=== PATIENT | female | born 1950 | race Caucasian/White ===

== ENCOUNTER → 2017-05-09 | Outpatient (CLI) | payer MEDICARE ==
--- NOTE | 2017-05-10 09:27 | MM ---
Reason for exam: screening (asymptomatic). Last mammogram was performed 1 year ago. History: Patient is postmenopausal. Family history of premenopausal breast cancer in maternal cousin at age 40, breast cancer in mother at age 70, and breast cancer in maternal aunt at age 60. Benign excisional biopsy of the right breast, April 30, 2002. Core biopsy of the left breast. Excisional biopsy of the left breast. Took estrogen for 1 year. Took progesterone for 1 year. Physical Findings: A clinical breast exam by your physician is recommended on an annual basis and results should be correlated with mammographic findings. MG 3D Screening Mammo W/Cad Bilateral CC and MLO view(s) were taken. Prior study comparison: May 08, 2016, bilateral MG 3d screening mammo w/cad. April 18, 2015, bilateral MG screening mammo w CAD. The breast tissue is heterogeneously dense. This may lower the sensitivity of mammography. Finding: There are typically benign round calcifications in both breasts. There is a chronic nodularity bilaterally. There is no dominant lesion. ASSESSMENT: Benign, BI-RAD 2 RECOMMENDATION: Routine screening mammogram of both breasts in 1 year.
== END | disposition home or self-care (01) ==
LOC: RADMAMWWP 07:51
PROVIDERS: ATTEND Family Medicine
DX: Z12.31 Encounter for screening mammogram for malignant neoplasm of breast (principal)
CPT/HCPCS: 77063; G0202

== ENCOUNTER 2018-03-26 12:18 | Inpatient (IN) | payer MEDICARE ==
[2018-03-26] MEDS ORDERED: MORPHINE SULFATE 4 MG/ML SYRINGE IV STA (12:59)
[2018-03-26] MEDS ORDERED: KETOROLAC 30 MG/ML 1 ML VIAL IVP STA (12:59)
[2018-03-26] MEDS ORDERED: SODIUM CHLORIDE 0.9% 1,000 ML IV STA (12:59)
[2018-03-26] MEDS ORDERED: PANTOPRAZOLE 40 MG/10 ML VIAL IVP STA (12:59)
[2018-03-26] MEDS ORDERED: ONDANSETRON 4 MG/2 ML VIAL IVP STA (12:59)
--- NOTE | 2018-03-26 13:01 | ED ---
Abdominal Pain HPI - General Chief Complaint: Abdominal Pain Stated Complaint: Poss Bowel Obstruction Time Seen by Provider: 03/26/18 12:55 Source: patient, RN notes reviewed, old records reviewed Mode of arrival: ambulatory Limitations: no limitations - History of Present Illness Initial Comments: 67-year-old female presents emergency department today chief complaint of severe abdominal pain. Patient reports that she thinks she has another bout section. She had one a few years ago. Patient has had no fevers or chills. She has had a few episodes of vomiting. She did have a small bowel movement earlier today. She denies any urinary symptoms. Denies back pain. - Related Data Home Medications Medication Instructions Recorded Confirmed Ibuprofen [Motrin] 200 mg PO DAILY PRN 01/02/15 03/26/18 Omeprazole [PriLOSEC] 20 mg PO AC-BRKFST 01/02/15 03/26/18 Allergies Allergy/AdvReac Type Severity Reaction Status Date / Time No Known Allergies Allergy Verified 03/26/18 12:45 Review of Systems ROS Statement: Those systems with pertinent positive or pertinent negative responses have been documented in the HPI. ROS Other: All systems not noted in ROS Statement are negative. Past Medical History Past Medical History: GERD/Reflux, Osteoarthritis (OA), Skin Disorder Additional Past Medical History / Comment(s): psoriasis, diverticulosis, bowel obstuction History of Any Multi-Drug Resistant Organisms: None Reported Past Surgical History: Bowel Resection, Cholecystectomy, Orthopedic Surgery Additional Past Surgical History / Comment(s): MEDICAL HX: BOWEL OBSTRUCTION Past Anesthesia/Blood Transfusion Reactions: Previous Problems w/ Anesthesia, Postoperative Nausea & Vomiting (PONV) Past Psychological History: No Psychological Hx Reported Smoking Status: Never smoker Past Alcohol Use History: Daily Past Drug Use History: None Reported - Past Family History Mother Family Medical History: Cancer Additional Family Medical History / Comment(s): breast cancer General Exam - General Exam Comments Initial Comments: 67-year-old female. Alert and oriented. No acute distress. Limitations: no limitations General appearance: alert, in no apparent distress Head exam: Present: atraumatic, normocephalic, normal inspection Eye exam: Present: normal appearance, PERRL, EOMI. Absent: scleral icterus, conjunctival injection, periorbital swelling ENT exam: Present: normal exam, mucous membranes moist Neck exam: Present: normal inspection. Absent: tenderness, meningismus, lymphadenopathy Respiratory exam: Present: normal lung sounds bilaterally. Absent: respiratory distress, wheezes, rales, rhonchi, stridor Cardiovascular Exam: Present: regular rate, normal rhythm, normal heart sounds. Absent: systolic murmur, diastolic murmur, rubs, gallop, clicks GI/Abdominal exam: Present: soft, tenderness ( severe Diffuse abdominal tenderness.), guarding, normal bowel sounds. Absent: distended, rebound, rigid Extremities exam: Present: normal inspection, full ROM, normal capillary refill. Absent: tenderness, pedal edema, joint swelling, calf tenderness Back exam: Present: normal inspection Neurological exam: Present: alert, oriented X3, CN II-XII intact Psychiatric exam: Present: normal affect, normal mood Skin exam: Present: warm, dry, intact, normal color. Absent: rash Course Vital Signs 03/26/18 03/26/18 12:28 15:16 Temperature 97.7 F Pulse Rate 80 83 Respiratory 18 18 Rate Blood Pressure 131/87 123/58 O2 Sat by Pulse 97 98 Oximetry Medical Decision Making - Medical Decision Making Patient 67-year-old female with multiple abdominal surgeries including cholecystectomy, bowel resection, C-sections. Patient states that her power section was done by Dr. Akhtar few years ago. Patient has a history of bowel obstructions concerned for another today. She had one small bowel movement today multiple episodes of vomiting. Patient has diffuse tenderness on abdominal exam. IV was established Patient is given pain medication and CT of the pelvis completed. Patient's labwork was reviewed and unremarkable. CT abdomen and pelvis shows evidence of a distal and mid small bowel obstruction. NG tube was placed. Patient will be admitted at this time to Dr. Benavidez with consult to Dr. Whiting the on-call surgeon. Patient has seen Dr. Moreno in the past however he is out of town at this time. - Lab Data Result diagrams: 03/26/18 12:51 03/26/18 12:51 Lab Results 03/26/18 03/26/18 03/26/18 Range/Units 12:51 12:51 12:51 WBC 10.4 (3.8-10.6) k/uL RBC 4.71 (3.80-5.40) m/uL Hgb 14.4 (11.4-16.0) gm/dL Hct 45.0 (34.0-46.0) % MCV 95.4 (80.0-100.0) fL MCH 30.6 (25.0-35.0) pg MCHC 32.0 (31.0-37.0) g/dL RDW 13.3 (11.5-15.5) % Plt Count 241 (150-450) k/uL Neutrophils % 75 % Lymphocytes % 16 % Monocytes % 6 % Eosinophils % 1 % Basophils % 0 % Neutrophils # 7.9 H (1.3-7.7) k/uL Lymphocytes # 1.7 (1.0-4.8) k/uL Monocytes # 0.6 (0-1.0) k/uL Eosinophils # 0.1 (0-0.7) k/uL Basophils # 0.0 (0-0.2) k/uL PT 9.5 (9.0-12.0) sec INR 1.0 (<1.2) APTT 21.9 L (22.0-30.0) sec Sodium 138 (137-145) mmol/L Potassium 4.4 (3.5-5.1) mmol/L Chloride 102 (98-107) mmol/L Carbon Dioxide 25 (22-30) mmol/L Anion Gap 11 mmol/L BUN 15 (7-17) mg/dL Creatinine 0.68 (0.52-1.04) mg/dL Est GFR (CKD-EPI)AfAm >90 (>60 ml/min/1.73 sqM) Est GFR (CKD-EPI)NonAf 90 (>60 ml/min/1.73 sqM) Glucose 125 H (74-99) mg/dL Calcium 9.8 (8.4-10.2) mg/dL Total Bilirubin 0.5 (0.2-1.3) mg/dL AST 63 H (14-36) U/L ALT 98 H (9-52) U/L Alkaline Phosphatase 154 H (38-126) U/L Troponin I (0.000-0.034) ng/mL Total Protein 7.5 (6.3-8.2) g/dL Albumin 4.6 (3.5-5.0) g/dL Amylase 80 (30-110) U/L Lipase 67 (23-300) U/L 07/18/18 Range/Units 12:51 WBC (3.8-10.6) k/uL RBC (3.80-5.40) m/uL Hgb (11.4-16.0) gm/dL Hct (34.0-46.0) % MCV (80.0-100.0) fL MCH (25.0-35.0) pg MCHC (31.0-37.0) g/dL RDW (11.5-15.5) % Plt Count (150-450) k/uL Neutrophils % % Lymphocytes % % Monocytes % % Eosinophils % % Basophils % % Neutrophils # (1.3-7.7) k/uL Lymphocytes # (1.0-4.8) k/uL Monocytes # (0-1.0) k/uL Eosinophils # (0-0.7) k/uL Basophils # (0-0.2) k/uL PT (9.0-12.0) sec INR (<1.2) APTT (22.0-30.0) sec Sodium (137-145) mmol/L Potassium (3.5-5.1) mmol/L Chloride (98-107) mmol/L Carbon Dioxide (22-30) mmol/L Anion Gap mmol/L BUN (7-17) mg/dL Creatinine (0.52-1.04) mg/dL Est GFR (CKD-EPI)AfAm (>60 ml/min/1.73 sqM) Est GFR (CKD-EPI)NonAf (>60 ml/min/1.73 sqM) Glucose (74-99) mg/dL Calcium (8.4-10.2) mg/dL Total Bilirubin (0.2-1.3) mg/dL AST (14-36) U/L ALT (9-52) U/L Alkaline Phosphatase (38-126) U/L Troponin I <0.012 (0.000-0.034) ng/mL Total Protein (6.3-8.2) g/dL Albumin (3.5-5.0) g/dL Amylase (30-110) U/L Lipase (23-300) U/L 03/26/18 14:21 EKG shows normal sinus rhythm unable to scratch here for LVH. Cannot rule out anterior infarct age undetermined. Abnormal EKG. Ventricular rate of 79 bpm period. We'll 09/[birth year]/1965 milliseconds. QRS ration 80 ms. QT QTc is 400/458 ms. No evidence of ST elevation or T-wave inversion. No evidence of atrial or ventricular arrythmias. - Radiology Data Radiology results: report reviewed Suspect partial the mid distal small bowel instruction in the pelvis. There is prominence of small bowel loops at 2.7 cm small bowel feces sign with decompressed distal ileum. Small to moderate amount of free fluid within the pelvic cul-de-sac. This is a nonspecific but abnormal finding in a postmenopausal female. Consider further workup. Disposition Clinical Impression: Small bowel obstruction Disposition: ADMITTED IP TO THIS HOSP Condition: Good Is patient prescribed a controlled substance at d/c from ED?: No When asked, does pt state using other controlled substances?: No If prescribed controlled substance>3 days was MAPS reviewed?: No If opioid is for acute pain is fill amount 7 days or less?: No If Rx opioid, was Start Talking consent form obtained?: No Referrals: Jaspreet Ellis DO [Primary Care Provider] - 1-2 days Time of Disposition: 15:55
[2018-03-26 13:42] LABS: Basophils % (A) 0 %; Eosinophils # (A) 0.1 k/uL (0-0.7); Eosinophils % (A) 1 %; HGB 14.4 gm/dL (11.4-16.0); Lymphocytes # (A) 1.7 k/uL (1.0-4.8); Lymphocytes % (A) 16 %; MCH 30.6 pg (25.0-35.0); MCV 95.4 fL (80.0-100.0); Mean Platelet Volume 9.9; Monocytes # (A) 0.6 k/uL (0-1.0); Monocytes % (A) 6 %; Neutrophils # (A) 7.9 k/uL (1.3-7.7); Neutrophils % (A) 75 %; Platelet Count 241 k/uL (150-450); RBC 4.71 m/uL (3.80-5.40); RDW 13.3 % (11.5-15.5); WBC 10.4 k/uL (3.8-10.6)
[2018-03-26 13:50] LABS: ALT 98 U/L (9-52); AST 63 U/L (14-36); Albumin 4.6 g/dL (3.5-5.0); Alkaline Phosphatase 154 U/L (38-126); Amylase 80 U/L (30-110); Anion Gap 11 mmol/L; Blood Urea Nitrogen 15 mg/dL (7-17); Calcium 9.8 mg/dL (8.4-10.2); Carbon Dioxide 25 mmol/L (22-30); Chloride 102 mmol/L (98-107); Glucose 125 mg/dL (74-99); Lipase 67 U/L (23-300); Potassium 4.4 mmol/L (3.5-5.1); Sodium 138 mmol/L (137-145); Total Bilirubin 0.5 mg/dL (0.2-1.3); Total Protein 7.5 g/dL (6.3-8.2)
[2018-03-26 13:56] LABS: Partial Thromboplastin Time 21.9 sec (22.0-30.0); Prothrombin Time 9.5 sec (9.0-12.0)
--- NOTE | 2018-03-26 14:59 | CT ---
EXAMINATION TYPE: CT abdomen pelvis w con DATE OF EXAM: 03/26/2018 HISTORY: Generalized pain with vomiting and diarrhea CT DLP: 786.4mGycm Automated Exposure Control for Dose Reduction was Utilized. CONTRAST: CT scan of the abdomen and pelvis is performed without oral but with IV Contrast, patient injected wi th 100 mL of Isovue 300. COMPARISON: CT abdomen and pelvis January 02, 2015 FINDINGS: LUNG BASES: There is persistent left basilar scarring and/or atelectasis. LIVER/GB: Liver remains diffusely low dense relative to spleen suggesting fatty infiltration. Cholecy stectomy clips are redemonstrated PANCREAS: No significant abnormality is seen. SPLEEN: A few splenules are seen anterior to the spleen are redemonstrated. ADRENALS: No significant abnormality is seen. KIDNEYS: There are 2 upper pole left renal calculi and current study increased in size from prior exa m axial images 31 and 32 respectively measuring up to 5 mm long axis. There may be additional 1 to 2 mm calculus upper pole level right kidney coronal image 58. There is symmetric cortical medullary upt merlin and excretion from both kidneys without evidence of hydronephrosis seen bilaterally. There is sta ble subcentimeter low dense lesion anteriorly lower pole level right kidney series 8 image 40 too sma ll to further characterize but presumed benign. No intraluminal calculus in the bladder is seen. BOWEL: Evaluation of bowel is slightly suboptimal secondary to lack of enteric contrast. There is no suspicious dilatation of stomach or duodenal sweep. There are some fluid-filled prominent small bowel loops in the upper to mid pelvis near axial image 59. There is small bowel feces sign. Bowel measure s up to 2.7 cm in size. No greater than 3 cm aneurysmal change is seen. There are decompressed distal ileal loops to the right of this. UTERUS/ADNEXA: Small to moderate amount of free fluid in pelvic cul-de-sac is redemonstrated axial im age 66. LYMPH NODES: No greater than 1cm abdominal or pelvic lymph nodes are appreciated. OSSEOUS STRUCTURES: No significant abnormality is seen. OTHER: No significant additional abnormality is seen. IMPRESSION: 1. Suspect partial mid to distal small bowel obstruction in the pelvis as there is prominence of smal l bowel loops up to 2.7 cm and small bowel feces sign within decompressed distal ileum. 2. Small to moderate amount of free fluid in pelvic cul-de-sac redemonstrated, this is nonspecific bu t abnormal finding in postmenopausal female. Consider further workup.
[2018-03-26] MEDS ORDERED: LORazepam 2 MG/ML INJ IV STA (15:13)
[2018-03-26] MEDS ORDERED: KETOROLAC 30 MG/ML 1 ML VIAL IVP PRN (15:57)
[2018-03-26] MEDS ORDERED: NALOXONE 0.4 MG/ML 1 ML VIAL IV PRN (15:57)
[2018-03-26] MEDS: SODIUM CHLORIDE 0.9% 1,000 ML IV SCH (16:30)
--- NOTE | 2018-03-26 17:09 | XR ---
EXAMINATION TYPE: XR chest 1V DATE OF EXAM: 03/26/2018 COMPARISON: 01/03/2015 HISTORY: Nasogastric tube TECHNIQUE: Single frontal view of the chest is obtained. FINDINGS: There is no heart failure nor confluent pneumonic infiltrate. There is nasogastric tube wi th the tip overlying the gastric fundus. Costophrenic angles are clear. IMPRESSION: Nasogastric tube appears in good position. No active cardiopulmonary disease.
--- NOTE | 2018-03-26 17:33 | XR ---
EXAMINATION TYPE: XR abdomen 1V DATE OF EXAM: 03/26/2018 COMPARISON: 01/03/2015 HISTORY: Abdominal pain TECHNIQUE: 2 views FINDINGS: There is no sign of intestinal obstruction or pneumoperitoneum. There is nasogastric tube i n good position in the fundus of the stomach. There is contrast in the renal collecting systems. Ther e are clips from cholecystectomy. There is contrast in the urinary bladder. IMPRESSION: Nonacute abdomen. No evidence of renal obstruction.
--- NOTE | 2018-03-26 17:35 | P.HPIM ---
History of Present Illness 67-year-old pleasant female with his previous history came in with complaints of severe epigastric abdominal burning sensation nausea without any vomiting as patient did not eat anything today her burning sensation is about 8/10 in severity and is in the pain is in the abdominal epigastric area. Patient had a CAT scan of the abdomen which did show some mild ileus around the mid to distal small wall area. Surgery was consulted and patient was admitted to my service patient was started on Protonix and discontinue and Toradol. Patient on morphine at this point of time patient had diarrhea couple days ago and patient small bowel movement today. Patient had history of partial small bowel obstructions which was improved with the conservative measures in the past. Review of Systems REVIEW OF SYSTEMS: CONSTITUTIONAL: No fever, no malaise, no fatigue. HEENT: No recent visual problems or hearing problems. Denied any sore throat. CARDIOVASCULAR: No chest pain, orthopnea, PND, no palpitations, no syncope. PULMONARY: No shortness of breath, no cough, no hemoptysis. GASTROINTESTINAL: As mentioned above NEUROLOGICAL: No headaches, no weakness, no numbness. HEMATOLOGICAL: Denies any bleeding or petechiae. GENITOURINARY: Denies any burning micturition, frequency, or urgency. MUSCULOSKELETAL/RHEUMATOLOGICAL: Denies any joint pain, swelling, or any muscle pain. ENDOCRINE: Denies any polyuria or polydipsia. The rest of the 14-point review of systems is negative. Past Medical History Past Medical History: GERD/Reflux, Osteoarthritis (OA), Skin Disorder Additional Past Medical History / Comment(s): psoriasis, diverticulosis, bowel obstuction History of Any Multi-Drug Resistant Organisms: None Reported Past Surgical History: Bowel Resection, Cholecystectomy, Orthopedic Surgery Additional Past Surgical History / Comment(s): MEDICAL HX: BOWEL OBSTRUCTION Past Anesthesia/Blood Transfusion Reactions: Previous Problems w/ Anesthesia, Postoperative Nausea & Vomiting (PONV) Past Psychological History: No Psychological Hx Reported Smoking Status: Never smoker Past Alcohol Use History: Daily Past Drug Use History: None Reported - Past Family History Mother Family Medical History: Cancer Additional Family Medical History / Comment(s): breast cancer Medications and Allergies Home Medications Medication Instructions Recorded Confirmed Type Ibuprofen [Motrin] 200 mg PO DAILY PRN 01/02/15 03/26/18 History Omeprazole [PriLOSEC] 20 mg PO AC-BRKFST 01/02/15 03/26/18 History Allergies Allergy/AdvReac Type Severity Reaction Status Date / Time No Known Allergies Allergy Verified 03/26/18 12:45 Physical Exam Vitals: Vital Signs Temp Pulse Resp BP Pulse Ox 03/26/18 16:30 86 18 126/74 92 L 03/26/18 15:16 83 18 123/58 98 03/26/18 12:28 97.7 F 80 18 131/87 97 Intake and Output 03/26/18 03/26/18 03/26/18 06:59 14:59 22:59 Other: Weight 72.575 kg PHYSICAL EXAMINATION: GENERAL: The patient is alert and oriented x3, not in any acute distress. Well developed, well nourished. She has an NG tube in place which is presently clamped not connected the suction HEENT: Pupils are round and equally reacting to light. EOMI. No scleral icterus. No conjunctival pallor. Normocephalic, atraumatic. No pharyngeal erythema. No thyromegaly. CARDIOVASCULAR: S1 and S2 present. No murmurs, rubs, or gallops. PULMONARY: Chest is clear to auscultation, no wheezing or crackles. ABDOMEN: Soft, nontender, nondistended, normoactive bowel sounds. No palpable organomegaly. MUSCULOSKELETAL: No joint swelling or deformity. EXTREMITIES: No cyanosis, clubbing, or pedal edema. NEUROLOGICAL: Gross neurological examination did not reveal any focal deficits. SKIN: No rashes. Results CBC & Chem 7: 03/26/18 12:51 03/26/18 12:51 Labs: Abnormal Lab Results - Last 24 Hours (Table) 03/26/18 03/26/18 03/26/18 Range/Units 12:51 12:51 12:51 Neutrophils # 7.9 H (1.3-7.7) k/uL APTT 21.9 L (22.0-30.0) sec Glucose 125 H (74-99) mg/dL AST 63 H (14-36) U/L ALT 98 H (9-52) U/L Alkaline Phosphatase 154 H (38-126) U/L Assessment and Plan Plan: -Epigastric abdominal pain: Mostly secondary to gastritis rather than partial small bowel obstruction patient is on Protonix and change it to IV twice a day will monitor. -Mild partial small bowel obstruction as per the CAT scan patient does have good bowel sounds will continue with NG tube as necessary monitor and surgical consultation. -Mild nonspecific elevation of liver enzymes we'll repeat them tomorrow if they' re still elevated will further workup starting with hepatitis panel on the ultrasound of the liver.
--- NOTE | 2018-03-26 20:19 | P.GSCN ---
History of Present Illness Consult date: 03/26/18 History of present illness: CHIEF COMPLAINT: Abdominal pain HISTORY OF PRESENT ILLNESS: The patient is a 67-year-old female who reports fifth episode of small bowel obstruction. Her history significant for C- section 3 including sigmoid colectomy done by Dr. Akhtar. Her last episode of bowel obstruction was over 4+ years ago. She reports obstipation. She reports abdominal pain along the generalized abdomen. She had a CT of the abdomen and pelvis consistent with localized small bowel obstruction hence her admission. Since placement of her nasogastric tube, she reports no improvement of her symptoms. PAST MEDICAL HISTORY: See list. PAST SURGICAL HISTORY: See list. MEDICATIONS: See list. ALLERGIES: See list. SOCIAL HISTORY: No illicit drug use FAMILY HISTORY: No reports of Crohn's disease or inflammatory bowel disease REVIEW OF ORGAN SYSTEMS: CONSTITUTIONAL: No fevers or chills HEENT: No troubles with vision or hearing. No reports of dysphagia. ENDOCRINE: No reports of thyroid disorders. No diabetes. CARDIOVASCULAR: No heart attack. No chest pain. RESPIRATORY: No shortness of breath or pneumonia. GASTROINTESTINAL: No reports of recent blood in stools. Has changes in bowel function. History of diverticulosis. NEURO: No reports of stroke or seizure disorders. PSYCH: No depression or suicidal ideation HEMATOLOGIC: No easy bruising or bleeding LYMPHATIC: The patient denies any lumps and bumps around the neck. GENITOURINARY: History of kidney stones. MUSCULOSKELETAL: Has back pain, stiffness or joint arthritis. SKIN: Has psoriasis. No skin cancer. PHYSICAL EXAM: VITAL SIGNS: Currently stable. GENERAL: Well-developed male in no acute distress. HEENT: No sclera icterus. Extraocular movements grossly intact. Moist buccal mucosa. Head is atraumatic, normocephalic. Hears conversational speech. No nasal drainage. NECK: Supple without lymphadenopathy. CHEST: Non-labored respirations and equal bilateral excursions. CARDIOVASCULAR: Regular rate with regular rhythm. Palpable 2+ radial pulses. ABDOMEN: Soft. Tender along the bilateral lower abdomen. Distended mildly. No peritonitis. MUSCULOSKELETAL: No clubbing, cyanosis or edema. NEUROLOGIC: No focal or lateralizing signs. Cranial nerves II through XII grossly intact. PSYCH: Appropriate affect. Alert and oriented to person, place and time. SKIN: Well perfused. Good skin turgor. LABS: Reviewed STUDIES: Reviewed. Imaging consistent with localized bowel obstruction within the pelvis. ASSESSMENT: 1. Small bowel obstruction due to peritoneal adhesions. PLAN: 1. Agree with nasogastric tube decompression. 2. Recommend ice chips. 3. May need exploratory laparotomy with lysis of adhesions should symptoms persist beyond 24 hours. 4. IV fluid hydration. Thank you for this kind consultation. Past Medical History Past Medical History: GERD/Reflux, Osteoarthritis (OA), Skin Disorder Additional Past Medical History / Comment(s): psoriasis, diverticulosis, 2015 past bowel obstuction(no sx), diverticular disease(hx bowel resection), uti, kidney stone(sx), cataracts. History of Any Multi-Drug Resistant Organisms: None Reported Past Surgical History: Bowel Resection, Section, Cholecystectomy, Orthopedic Surgery Additional Past Surgical History / Comment(s): x3 c-sections, rt knee replacement, kidney stone removed Past Anesthesia/Blood Transfusion Reactions: Previous Problems w/ Anesthesia, Postoperative Nausea & Vomiting (PONV) Smoking Status: Former smoker - Past Family History Father History Unknown: Yes Sister(s) Family Medical History: Cancer Additional Family Medical History / Comment(s): i sister at age 66 from colorectal cancer and 2ns sister dx w/ stage 3 lung cancer-smoker Mother Family Medical History: Cancer Additional Family Medical History / Comment(s): breast cancer Medications and Allergies Home Medications Medication Instructions Recorded Confirmed Type Ibuprofen [Motrin] 200 mg PO DAILY PRN 01/02/15 03/26/18 History Omeprazole [PriLOSEC] 20 mg PO AC-BRKFST 01/02/15 03/26/18 History Allergies Allergy/AdvReac Type Severity Reaction Status Date / Time No Known Allergies Allergy Verified 03/26/18 12:45 Surgical - Exam Vital Signs Temp Pulse Resp BP Pulse Ox 97.7 F 80 18 131/87 97 03/26/18 12:28 03/26/18 12:28 03/26/18 12:28 03/26/18 12:28 03/26/18 12:28 Results - Labs 03/26/18 12:51 03/26/18 12:51 Abnormal Lab Results - Last 24 Hours (Table) 03/26/18 03/26/18 03/26/18 Range/Units 12:51 12:51 12:51 Neutrophils # 7.9 H (1.3-7.7) k/uL APTT 21.9 L (22.0-30.0) sec Glucose 125 H (74-99) mg/dL AST 63 H (14-36) U/L ALT 98 H (9-52) U/L Alkaline Phosphatase 154 H (38-126) U/L Diabetes panel 03/26/18 Range/Units 12:51 Sodium 138 (137-145) mmol/L Potassium 4.4 (3.5-5.1) mmol/L Chloride 102 (98-107) mmol/L Carbon Dioxide 25 (22-30) mmol/L BUN 15 (7-17) mg/dL Creatinine 0.68 (0.52-1.04) mg/dL Glucose 125 H (74-99) mg/dL Calcium 9.8 (8.4-10.2) mg/dL AST 63 H (14-36) U/L ALT 98 H (9-52) U/L Alkaline Phosphatase 154 H (38-126) U/L Total Protein 7.5 (6.3-8.2) g/dL Albumin 4.6 (3.5-5.0) g/dL Calcium panel 03/26/18 Range/Units 12:51 Calcium 9.8 (8.4-10.2) mg/dL Albumin 4.6 (3.5-5.0) g/dL Pituitary panel 03/26/18 Range/Units 12:51 Sodium 138 (137-145) mmol/L Potassium 4.4 (3.5-5.1) mmol/L Chloride 102 (98-107) mmol/L Carbon Dioxide 25 (22-30) mmol/L BUN 15 (7-17) mg/dL Creatinine 0.68 (0.52-1.04) mg/dL Glucose 125 H (74-99) mg/dL Calcium 9.8 (8.4-10.2) mg/dL Adrenal panel 03/26/18 Range/Units 12:51 Sodium 138 (137-145) mmol/L Potassium 4.4 (3.5-5.1) mmol/L Chloride 102 (98-107) mmol/L Carbon Dioxide 25 (22-30) mmol/L BUN 15 (7-17) mg/dL Creatinine 0.68 (0.52-1.04) mg/dL Glucose 125 H (74-99) mg/dL Calcium 9.8 (8.4-10.2) mg/dL Total Bilirubin 0.5 (0.2-1.3) mg/dL AST 63 H (14-36) U/L ALT 98 H (9-52) U/L Alkaline Phosphatase 154 H (38-126) U/L Total Protein 7.5 (6.3-8.2) g/dL Albumin 4.6 (3.5-5.0) g/dL
[2018-03-26] MEDS: MORPHINE SULFATE 4 MG/ML SYRINGE IV PRN (20:22)
[2018-03-26] MEDS: PANTOPRAZOLE 40 MG/10 ML VIAL IV SCH (20:23)
[2018-03-26 21:00] LABS: Appearance,Urine Clear (Clear); Bacteria,Urine Rare /hpf; Bilirubin,Urine Negative (Negative); Blood,Urine Negative (Negative); Color,Urine Yellow; Glucose,Urine (UA) Negative (Negative); Ketones,Urine 1+ (Negative); Leukocyte Esterase,Urine Small (Negative); Mucus,Urine Occasional /hpf; Nitrite,Urine Negative (Negative); Protein,Urine Trace (Negative); RBC,Urine 1 /hpf (0-5); Squamous Epithelial Cell,Urine 1 /hpf (0-4); Urobilinogen,Urine <2.0 mg/dL (<2.0)
[2018-03-26 21:01] LABS: Specific Gravity,Urine >1.050 (1.001-1.035)
[2018-03-27] MEDS: SODIUM CHLORIDE 0.9% 1,000 ML IV SCH ×3 (00:30→17:51)
[2018-03-27] MEDS: MORPHINE SULFATE 4 MG/ML SYRINGE IV PRN ×4 (01:25→21:20)
[2018-03-27] MEDS: ONDANSETRON 4 MG/2 ML VIAL IVP PRN ×2 (04:34→19:45)
[2018-03-27 07:13] LABS: HCT 38.5 % (34.0-46.0); HGB 12.6 gm/dL (11.4-16.0); MCH 31.9 pg (25.0-35.0); MCHC 32.7 g/dL (31.0-37.0); MCV 97.6 fL (80.0-100.0); Platelet Count 195 k/uL (150-450); RBC 3.95 m/uL (3.80-5.40); RDW 13.7 % (11.5-15.5); WBC 7.7 k/uL (3.8-10.6)
[2018-03-27] MEDS: PANTOPRAZOLE 40 MG/10 ML VIAL IV SCH ×2 (07:24→21:16)
[2018-03-27 07:32] LABS: ALT 71 U/L (9-52); AST 39 U/L (14-36); Albumin 3.4 g/dL (3.5-5.0); Alkaline Phosphatase 106 U/L (38-126); Anion Gap 6 mmol/L; Blood Urea Nitrogen 17 mg/dL (7-17); Calcium 8.3 mg/dL (8.4-10.2); Carbon Dioxide 26 mmol/L (22-30); Chloride 109 mmol/L (98-107); Glucose 92 mg/dL (74-99); Potassium 4.5 mmol/L (3.5-5.1); Sodium 141 mmol/L (137-145); Total Bilirubin 0.3 mg/dL (0.2-1.3); Total Protein 5.8 g/dL (6.3-8.2)
--- NOTE | 2018-03-27 08:42 | XR ---
2 view abdomen HISTORY: Bowel obstruction 2 views the abdomen on 4 images Correlation prior exam abdomen and abdomen pelvis CT 03/26/2018 There is contrast present within the urinary bladder. NG tube shows the side port cephalad to the lev el of the gastroesophageal junction. Surgical clips are present right upper quadrant. There are calci fications over the left kidney as noted on CT. Lung bases are clear. Air-fluid levels are present in the central abdomen without gross bowel distention. No pneumoperitoneum. IMPRESSION: Correlate for possible bowel obstruction. Follow-up suggested.
[2018-03-27] MEDS ORDERED: PANTOPRAZOLE 40 MG/10 ML VIAL IV SCH (09:00)
--- NOTE | 2018-03-27 14:21 | P.PN ---
Subjective 58-year-old admitted with the partial small bowel obstruction patient has significant NG tube drainage patient is receiving IV fluids patient is also being treated for gastritis patient on IV Protonix. We'll try to avoid opiates for pain patient does have bowel sounds and patient does have history of a partial small bowel obstruction in the past. Patient did not move her bowel or pass gas. Constitutional: Denied any fatigue denied any fever. Cardio vascular: denied any chest pain, palpitations Gastrointestinal abdominal pain significant improved but patient remains nauseous in spite of NG tube Pulmonary: Denied any shortness of breath cough Neurologic denied any new focal deficits Objective - Vital Signs Vital signs: Vital Signs Temp 98.1 F 03/27/18 07:00 Pulse 80 03/27/18 07:00 Resp 16 03/27/18 07:00 BP 117/64 03/27/18 07:00 Pulse Ox 92 L 03/27/18 07:00 Intake & Output 03/26/18 03/27/18 03/27/18 18:59 06:59 18:59 Intake Total 1000 Output Total 250 Balance 750 Weight 72.575 kg Intake: Intake, IV Titration 1000 Amount Sodium Chloride 0.9% 1, 1000 000 ml @ 120 mls/hr IV . [facility]H20M [facility] Rx#:[id number] Output: Gastric Drainage 250 Other: Voiding Method Toilet # Voids 1 - Exam PHYSICAL EXAMINATION: GENERAL: The patient is alert and oriented x3, not in any acute distress. Well developed, well nourished. She has an NG tube in place which is presently clamped not connected the suction HEENT: Pupils are round and equally reacting to light. EOMI. No scleral icterus. No conjunctival pallor. Normocephalic, atraumatic. No pharyngeal erythema. No thyromegaly. CARDIOVASCULAR: S1 and S2 present. No murmurs, rubs, or gallops. PULMONARY: Chest is clear to auscultation, no wheezing or crackles. ABDOMEN: Soft, nontender, nondistended, normoactive bowel sounds. No palpable organomegaly. NG tube in place with significant drainage from the NG tube MUSCULOSKELETAL: No joint swelling or deformity. EXTREMITIES: No cyanosis, clubbing, or pedal edema. NEUROLOGICAL: Gross neurological examination did not reveal any focal deficits. SKIN: No rashes. - Labs CBC & Chem 7: 03/27/18 06:34 03/27/18 06:34 Labs: Abnormal Lab Results - Last 24 Hours (Table) 03/26/18 03/26/18 03/27/18 Range/Units 12:51 20:45 06:34 APTT 21.9 L (22.0-30.0) sec Chloride 109 H (98-107) mmol/L Calcium 8.3 L (8.4-10.2) mg/dL AST 39 H (14-36) U/L ALT 71 H (9-52) U/L Total Protein 5.8 L (6.3-8.2) g/dL Albumin 3.4 L (3.5-5.0) g/dL Ur Specific [place] >1.050 H (1.001-1.035) Urine Protein Trace H (Negative) Urine Ketones 1+ H (Negative) Ur Leukocyte Esterase Small H (Negative) Urine Bacteria Rare H (None) /hpf Urine Mucus Occasional H (None) /hpf Assessment and Plan Plan: -Mild partial small bowel obstruction, NG tube, de-compression IV fluids. Appreciate surgery recommendations -Epigastric abdominal pain: Mostly secondary to gastritis improved pain with Protonix -Mild nonspecific elevation of liver enzymes repeat liver enzymes are close to normal no further workup at this time -Asymptomatic bacteriuria will not require any antiemetics at this time
[2018-03-27] MEDS: ACETAMINOPHEN IV (For NPO) 1,000 MG in EMPTY BAG 1 BAG IVPB PRN (15:14)
--- NOTE | 2018-03-27 19:10 | P.PN ---
Subjective Progress Note Date: 03/27/18 Patient reports that she is now passing some flatus. She reports discomfort from the NGT tube. She is tolerating ice chips. Abdominal pain has improved. Objective - Vital Signs Vital signs: Vital Signs Temp 98.2 F 03/27/18 14:50 Pulse 83 03/27/18 14:50 Resp 16 03/27/18 15:35 BP 107/68 03/27/18 14:50 Pulse Ox 90 L 03/27/18 14:50 Intake & Output 03/27/18 03/27/18 03/28/18 06:59 18:59 06:59 Intake Total 1000 Output Total 250 250 Balance 750 -250 Intake: Intake, IV Titration 1000 Amount Sodium Chloride 0.9% 1, 1000 000 ml @ 120 mls/hr IV . Q8H20M [facility] Rx#:[id number] Output: Gastric Drainage 250 250 Other: Voiding Method Toilet # Voids 1 2 - Exam ABDOMEN: No peritonitis. Soft. Non-distended. - Labs CBC & Chem 7: 03/27/18 06:34 03/27/18 06:34 Labs: Abnormal Lab Results - Last 24 Hours (Table) 03/26/18 03/27/18 Range/Units 20:45 06:34 Chloride 109 H (98-107) mmol/L Calcium 8.3 L (8.4-10.2) mg/dL AST 39 H (14-36) U/L ALT 71 H (9-52) U/L Total Protein 5.8 L (6.3-8.2) g/dL Albumin 3.4 L (3.5-5.0) g/dL Ur Specific [place] >1.050 H (1.001-1.035) Urine Protein Trace H (Negative) Urine Ketones 1+ H (Negative) Ur Leukocyte Esterase Small H (Negative) Urine Bacteria Rare H (None) /hpf Urine Mucus Occasional H (None) /hpf - Imaging and Cardiology Abdominal x-ray: report reviewed (NGT needs to be advanced. Bowel obstruction noted.) Assessment and Plan (1) Small bowel obstruction Current Visit: Yes Status: Acute Code(s): K56.69 - OTHER INTESTINAL OBSTRUCTION * DO NOT USE * SNOMED Code(s): 953997694 Plan: 1. Advance NG tube. 2. She is clinically improving and surgery is now deferred. 3. Abdominal Xray in the morning.
[2018-03-27] MEDS ORDERED: BENZOCAINE/MENTHOL LOZENG 1 EACH LOZENGE MUCOUS MEM PRN (19:39)
[2018-03-28] MEDS ORDERED: MORPHINE SULFATE 4 MG/ML SYRINGE ONE (03:45)
[2018-03-28] MEDS ORDERED: BENZOCAINE/MENTHOL LOZENG 1 EACH LOZENGE MUCOUS MEM ONE (03:45)
[2018-03-28] MEDS: SODIUM CHLORIDE 0.9% 1,000 ML IV SCH ×3 (05:51→17:56)
[2018-03-28] MEDS: PANTOPRAZOLE 40 MG/10 ML VIAL IV SCH ×2 (08:33→21:07)
--- NOTE | 2018-03-28 09:08 | XR ---
Abdomen HISTORY: Obstruction 2 views of the abdomen correlated to prior exam 03/27/2018 Prominent loop of small bowel persists in the mid abdomen with air-fluid levels. NG tube is coiled in the left upper quadrant. No evident pneumoperitoneum. Left-sided nephrolithiasis persists. Lung base s show probable atelectasis. IMPRESSION: Findings could be indicative of small bowel obstruction. Follow-up. Correlate.
[2018-03-28] MEDS: ACETAMINOPHEN IV (For NPO) 1,000 MG in EMPTY BAG 1 BAG IVPB PRN (09:25)
[2018-03-28] MEDS: MORPHINE SULFATE 4 MG/ML SYRINGE IV PRN ×3 (12:27→21:39)
--- NOTE | 2018-03-28 16:38 | P.PN ---
Subjective Progress Note Date: 03/28/18 Patient is a pleasant 67-year-old female with her fifth episode of small bowel obstruction. Her last episode took at least 8 days to clear 4 years ago. This is day #3 of her bowel obstruction. She had paced some flatus yesterday however none today. Abdominal pain is moderately improved. Objective - Vital Signs Vital signs: Vital Signs Temp 98.4 F 03/28/18 14:16 Pulse 80 03/28/18 14:16 Resp 16 03/28/18 14:16 BP 121/73 03/28/18 14:16 Pulse Ox 90 L 03/28/18 14:16 Intake & Output 03/27/18 03/28/18 03/28/18 18:59 06:59 18:59 Intake Total 1250 Output Total 250 200 Balance -250 1050 Intake: Intake, IV Titration 1250 Amount ACETAMINOPHEN IV (For NPO 100 ) 1,000 mg In Empty Bag 1 bag @ 400 mls/hr IVPB Q6HR PRN Rx#:[id number] Sodium Chloride 0.9% 1, 1150 000 ml @ 120 mls/hr IV . Q8H20M [facility] Rx#:[id number] Output: Gastric Drainage 250 200 Other: Voiding Method Toilet Toilet # Voids 2 1 2 - Exam ABDOMEN: Soft, nontender, nondistended. NG tube output bilious mixed with ice chips. - Labs CBC & Chem 7: 03/27/18 06:34 03/27/18 06:34 - Imaging and Cardiology Abdominal x-ray: report reviewed (Comparative images from yesterday show some improvement of bowel obstruction. Flatus found within the rectum. Stool found within the left colon.), image reviewed Assessment and Plan (1) Small bowel obstruction Current Visit: Yes Status: Acute Code(s): K56.69 - OTHER INTESTINAL OBSTRUCTION * DO NOT USE * SNOMED Code(s): 431999447 Plan: 1. I discussed her options with the patient and she prefers conservative management. Her bowel obstruction last episode took 8 days to clear. She is day #3 today 2. Recommend continued hospitalization. 3. Ice chips only.
[2018-03-28] MEDS: ONDANSETRON 4 MG/2 ML VIAL IVP PRN (18:23)
--- NOTE | 2018-03-28 20:15 | P.PN ---
Subjective Progress Note Date: 03/28/18 Progress note being dictated for Dr. [place] Interval history:58-year-old admitted with the partial small bowel obstruction patient has significant NG tube drainage patient is receiving IV fluids patient is also being treated for gastritis patient on IV Protonix. We'll try to avoid opiates for pain patient does have bowel sounds and patient does have history of a partial small bowel obstruction in the past. Patient did not move her bowel or pass gas. Constitutional: Denied any fatigue denied any fever. Cardio vascular: denied any chest pain, palpitations Gastrointestinal abdominal pain significant improved but patient remains nauseous in spite of NG tube Pulmonary: Denied any shortness of breath cough Neurologic denied any new focal deficits 03/28/2018 NG tube to low intermittent suction, repositioned with increased outflow. No bowel movement. Reports flatus yesterday but none today. Complains of improving diffuse abdominal discomfort. Follow-up abdominal x-ray reporting small bowel obstruction. Afebrile. Objective - Vital Signs Vital signs: Vital Signs Temp 98.4 F 03/28/18 14:16 Pulse 80 03/28/18 14:16 Resp 16 03/28/18 14:16 BP 121/73 03/28/18 14:16 Pulse Ox 90 L 03/28/18 14:16 Intake & Output 03/28/18 03/28/18 03/29/18 06:59 18:59 06:59 Intake Total 1250 Output Total 200 Balance 1050 Intake: Intake, IV Titration 1250 Amount ACETAMINOPHEN IV (For NPO 100 ) 1,000 mg In Empty Bag 1 bag @ 400 mls/hr IVPB Q6HR PRN Rx#:[id number] Sodium Chloride 0.9% 1, 1150 000 ml @ 120 mls/hr IV . Q8H20M [facility] Rx#:[id number] Output: Gastric Drainage 200 Other: Voiding Method Toilet Toilet # Voids 1 2 - Exam GENERAL: The patient is alert and oriented x3, not in any acute distress. Well developed, well nourished. She has an NG tube in place which is presently clamped not connected the suction HEENT: Pupils are round and equally reacting to light. EOMI. No scleral icterus. No conjunctival pallor. Normocephalic, atraumatic. No pharyngeal erythema. No thyromegaly. CARDIOVASCULAR: S1 and S2 present. No murmurs, rubs, or gallops. PULMONARY: Chest is clear to auscultation, no wheezing or crackles. ABDOMEN: Soft, nontender, nondistended, normoactive bowel sounds. No palpable organomegaly. NG tube in place with significant bilious drainage MUSCULOSKELETAL: No joint swelling or deformity. EXTREMITIES: No cyanosis, clubbing, or pedal edema. NEUROLOGICAL: Gross neurological examination did not reveal any focal deficits. SKIN: No rashes. - Labs CBC & Chem 7: 03/27/18 06:34 03/27/18 06:34 Assessment and Plan Assessment: -Mild partial small bowel obstruction, NG tube, de-compression IV fluids. Appreciate surgery recommendations -Epigastric abdominal pain: Mostly secondary to gastritis improved pain with Protonix -Mild nonspecific elevation of liver enzymes repeat liver enzymes are close to normal no further workup at this time -Asymptomatic bacteriuria will not require any antibiotics at this time -Atelectasis Plan: Continue on current medication regime ,monitoring and symptomatic treatment. Aggressive pulmonary toileting. Incentive spirometer ordered. Conservative management as per discussion between surgery and patient. The impression and plan of care has been dictated as directed. : I performed a history and examination of this patient, discussed the same with the dictator. I agree with the dictator's note ,documented as a scribe. Any additional findings or plans will be noted.
[2018-03-29] MEDS: MORPHINE SULFATE 4 MG/ML SYRINGE IV PRN ×6 (01:51→21:36)
[2018-03-29] MEDS: SODIUM CHLORIDE 0.9% 1,000 ML IV SCH ×3 (07:37→21:36)
[2018-03-29] MEDS: PANTOPRAZOLE 40 MG/10 ML VIAL IV SCH ×2 (07:37→21:35)
--- NOTE | 2018-03-29 10:15 | P.PN ---
Progress Note - Text Progress Note Date: 03/29/18 The patient states she feels better. She's had no significant flatus. On exam her vital signs are stable. Her abdomen soft. Patient continued to have a nasogastric tube decompression. If she does not have any further GI function.. She will have her CAT scan repeated tomorrow.
--- NOTE | 2018-03-29 11:25 | P.PN ---
Subjective 58-year-old admitted with the partial small bowel obstruction patient has significant NG tube drainage patient is receiving IV fluids patient is also being treated for gastritis patient on IV Protonix. We'll try to avoid opiates for pain patient does have bowel sounds and patient does have history of a partial small bowel obstruction in the past. Patient did not move her bowel or pass gas. 03/28/2018 NG tube to low intermittent suction, repositioned with increased outflow. No bowel movement. Reports flatus yesterday but none today. Complains of improving diffuse abdominal discomfort. Follow-up abdominal x-ray reporting small bowel obstruction. Afebrile. 03/29/2018 Patient has 100 mL output from NG tube, continue with IV fluids patient does have sluggish bowel sounds are do not have any basic metabolic profile available from today which will be ordered. Constitutional: Denied any fatigue denied any fever. Cardio vascular: denied any chest pain, palpitations Gastrointestinal abdominal pain significant improved Pulmonary: Denied any shortness of breath cough Neurologic denied any new focal deficits Objective - Vital Signs Vital signs: Vital Signs Temp 99.7 F H 03/29/18 07:00 Pulse 92 03/29/18 08:00 Resp 16 03/29/18 08:00 BP 112/69 03/29/18 07:00 Pulse Ox 90 L 03/29/18 07:00 Intake & Output 03/28/18 03/29/18 03/29/18 18:59 06:59 18:59 Intake Total 2020 Output Total 110 Balance 1910 Intake: Intake, IV Titration 2020 Amount ACETAMINOPHEN IV (For NPO 100 ) 1,000 mg In Empty Bag 1 bag @ 400 mls/hr IVPB Q6HR PRN Rx#:[id number] Sodium Chloride 0.9% 1, 1920 000 ml @ 120 mls/hr IV . Q8H20M [facility] Rx#:[id number] Output: Gastric Drainage 110 Other: Voiding Method Toilet Toilet Toilet # Voids 2 2 - Exam PHYSICAL EXAMINATION: GENERAL: The patient is alert and oriented x3, not in any acute distress. Well developed, well nourished. She has an NG tube in place which is presently clamped not connected the suction HEENT: Pupils are round and equally reacting to light. EOMI. No scleral icterus. No conjunctival pallor. Normocephalic, atraumatic. No pharyngeal erythema. No thyromegaly. CARDIOVASCULAR: S1 and S2 present. No murmurs, rubs, or gallops. PULMONARY: Chest is clear to auscultation, no wheezing or crackles. ABDOMEN: Soft, nontender, nondistended, normoactive bowel sounds. No palpable organomegaly. NG tube in place with significant drainage from the NG tube MUSCULOSKELETAL: No joint swelling or deformity. EXTREMITIES: No cyanosis, clubbing, or pedal edema. NEUROLOGICAL: Gross neurological examination did not reveal any focal deficits. SKIN: No rashes. - Labs CBC & Chem 7: 03/27/18 06:34 03/27/18 06:34 Assessment and Plan Plan: -Mild partial small bowel obstruction, NG tube, de-compression IV fluids. Appreciate surgery recommendations -Epigastric abdominal pain: Mostly secondary to gastritis improved pain with Protonix -Mild nonspecific elevation of liver enzymes repeat liver enzymes are close to normal no further workup at this time -Asymptomatic bacteriuria will not require any antiemetics at this time
[2018-03-29 12:31] LABS: Anion Gap 9 mmol/L; Blood Urea Nitrogen 7 mg/dL (7-17); Calcium 7.9 mg/dL (8.4-10.2); Carbon Dioxide 22 mmol/L (22-30); Chloride 108 mmol/L (98-107); Glucose 79 mg/dL (74-99); Sodium 139 mmol/L (137-145)
[2018-03-29 13:37] VITALS: BMI 29.2
[2018-03-30] MEDS: MORPHINE SULFATE 4 MG/ML SYRINGE IV PRN ×4 (04:27→21:32)
[2018-03-30] MEDS: SODIUM CHLORIDE 0.9% 1,000 ML IV SCH ×4 (05:36→21:40)
[2018-03-30 07:45] LABS: Anion Gap 8 mmol/L; Blood Urea Nitrogen 7 mg/dL (7-17); Calcium 7.9 mg/dL (8.4-10.2); Carbon Dioxide 25 mmol/L (22-30); Chloride 108 mmol/L (98-107); Glucose 79 mg/dL (74-99); Sodium 141 mmol/L (137-145)
[2018-03-30 07:56] VITALS: RESP 16
[2018-03-30] MEDS: PANTOPRAZOLE 40 MG/10 ML VIAL IV SCH ×2 (09:14→21:32)
--- NOTE | 2018-03-30 09:22 | P.PN ---
Progress Note - Text Progress Note Date: 03/30/18 The patient is resting comfortably in her bed. She has had some minimal cramping pain. She's not sure she's had any significant flatus. On exam her vital signs are stable. Her abdomen soft. There is no significant distention. History of Small bowel obstruction. Patient will undergo computed tomography scan of the abdomen today possible ongoing small bowel obstruction.
[2018-03-30] MEDS: IOPAMIDOL-300 CONTRAST 30 ML VIAL (ORAL USE) PO PRN ×2 (09:39→10:37)
--- NOTE | 2018-03-30 11:24 | CT ---
EXAMINATION TYPE: CT abdomen pelvis wo con DATE OF EXAM: 03/30/2018 COMPARISON: Previous study dated 03/26/2018. HISTORY: Small bowel obstruction CT DLP: 572.3 mGycm Automated exposure control for dose reduction was used. FINDINGS: There has been interval development of a moderate right-sided pleural effusion. There is a smaller left-sided pleural effusion. There is atelectasis or early consolidation in the left lingula. The heart is mildly enlarged. Within the abdomen, the gallbladder is been removed. Liver and spleen are unremarkable. Both adrenal glands are normal. There are 2 nonobstructing calculi in the anterior and posterior upper pole calyces of the left kidne y. The largest measures 7 mm. There is no evidence of hydronephrosis. Limited views of the pancreas are unremarkable. The bladder is unremarkable. Uterus is unremarkable. The ovaries are not visualized with certainty. There is been a previous sigmoid resection. There are scattered diverticula throughout the remainder of the left side of the colon. There is no radiographic evidence of diverticulitis. The appendix is n ot visualized. Small bowel loops are of normal caliber and have decreased in prominence from the previous study. I d o not see evidence of a small bowel obstruction at this time. There is no free fluid and no free air identified. There is facet arthropathy in the lower lumbar spine. No bony destructive lesion is seen. IMPRESSION: 1. I DO NOT SEE EVIDENCE OF SMALL BOWEL OBSTRUCTION AT THIS TIME. 2. INTERVAL DEVELOPMENT OF SMALL EFFUSIONS, GREATER ON THE RIGHT THAN THE LEFT. 3. NONOBSTRUCTING LEFT-SIDED NEPHROLITHIASIS. 4. POSTSURGICAL CHANGE. 5. DEGENERATIVE CHANGES WITHIN THE SPINE.
[2018-03-30] MEDS: ONDANSETRON 4 MG/2 ML VIAL IVP PRN (12:42)
--- NOTE | 2018-03-30 15:30 | P.PN ---
Subjective 58-year-old admitted with the partial small bowel obstruction patient has significant NG tube drainage patient is receiving IV fluids patient is also being treated for gastritis patient on IV Protonix. We'll try to avoid opiates for pain patient does have bowel sounds and patient does have history of a partial small bowel obstruction in the past. Patient did not move her bowel or pass gas. 03/28/2018 NG tube to low intermittent suction, repositioned with increased outflow. No bowel movement. Reports flatus yesterday but none today. Complains of improving diffuse abdominal discomfort. Follow-up abdominal x-ray reporting small bowel obstruction. Afebrile. 03/29/2018 Patient has 100 mL output from NG tube, continue with IV fluids patient does have sluggish bowel sounds are do not have any basic metabolic profile available from today which will be ordered.\ 03/30/2018 Patient had a bowel movement, nasogastric tube drainage has come down. IV for will cut down the IV fluids to 75 mL/h Constitutional: Denied any fatigue denied any fever. Cardio vascular: denied any chest pain, palpitations Gastrointestinal abdominal pain significant improved Pulmonary: Denied any shortness of breath cough Neurologic denied any new focal deficits Objective - Vital Signs Vital signs: Vital Signs Temp 97.8 F 03/30/18 07:14 Pulse 89 03/30/18 07:14 Resp 16 03/30/18 07:14 BP 136/75 03/30/18 07:14 Pulse Ox 93 L 03/30/18 07:14 Intake & Output 03/29/18 03/30/18 03/30/18 18:59 06:59 18:59 Intake Total 1200 1200 Output Total 200 Balance 1000 1200 Weight 72.575 kg Intake: Intake, IV Titration 1200 Amount Sodium Chloride 0.9% 1, 1200 000 ml @ 120 mls/hr IV . Q8H20M [facility] Rx#:[id number] Oral 1200 Output: Gastric Drainage 100 Emesis 100 Other: Voiding Method Toilet Toilet # Voids 2 2 1 # Bowel Movements 3 - Exam PHYSICAL EXAMINATION: GENERAL: The patient is alert and oriented x3, not in any acute distress. Well developed, well nourished. She has an NG tube in place which is presently clamped not connected the suction HEENT: Pupils are round and equally reacting to light. EOMI. No scleral icterus. No conjunctival pallor. Normocephalic, atraumatic. No pharyngeal erythema. No thyromegaly. CARDIOVASCULAR: S1 and S2 present. No murmurs, rubs, or gallops. PULMONARY: Chest is clear to auscultation, no wheezing or crackles. ABDOMEN: Soft, nontender, nondistended, normoactive bowel sounds. No palpable organomegaly. NG tube in place with significant drainage from the NG tube MUSCULOSKELETAL: No joint swelling or deformity. EXTREMITIES: No cyanosis, clubbing, or pedal edema. NEUROLOGICAL: Gross neurological examination did not reveal any focal deficits. SKIN: No rashes. - Labs CBC & Chem 7: 03/27/18 06:34 03/30/18 06:30 Labs: Abnormal Lab Results - Last 24 Hours (Table) 03/30/18 Range/Units 06:30 Chloride 108 H (98-107) mmol/L Creatinine 0.49 L (0.52-1.04) mg/dL Calcium 7.9 L (8.4-10.2) mg/dL Assessment and Plan Plan: -Mild partial small bowel obstruction, NG tube, de-compression IV fluids. Appreciate surgery recommendations -Epigastric abdominal pain: Mostly secondary to gastritis improved pain with Protonix -Mild nonspecific elevation of liver enzymes repeat liver enzymes are close to normal no further workup at this time -Asymptomatic bacteriuria will not require any antiemetics at this time
[2018-03-31] MEDS: PANTOPRAZOLE 40 MG/10 ML VIAL IV SCH (09:02)
[2018-03-31 14:28] VITALS: BP 117/70; PULSE 83; TEMP 97.6
--- NOTE | 2018-03-31 16:34 | P.DS ---
Providers Date of admission: 03/26/18 15:21 Expected date of discharge: 03/31/18 Attending physician: Chin White MD Consults: 03/26/18 15:57 Consult Physician Stat Consulting Provider: Fadia Tinoco Consult Reason/Comments: SBO Do you want consulting provider notified?: Yes Primary care physician: Jaspreet Ellis [facility] Course: This is a 67-year-old female who was admitted to the hospital with with a partial small bowel obstruction. Patient was treated with conservative therapy. Please see hospital chart for details. Patient Condition at Discharge: Good Plan - Discharge Summary Discharge Rx Participant: Yes New Discharge Prescriptions: No Action Ibuprofen [Motrin] 200 mg PO DAILY PRN PRN Reason: Pain Omeprazole [PriLOSEC] 20 mg PO AC-BRKFST Discharge Medication List Ibuprofen [Motrin] 200 mg PO DAILY PRN 01/02/15 [History] Omeprazole [PriLOSEC] 20 mg PO AC-BRKFST 01/02/15 [History] Follow up Appointment(s)/Referral(s): Jaspreet Ellis DO [Primary Care Provider] - 1-2 days Fadia Tinoco MD [STAFF PHYSICIAN] - 04/08/18
--- NOTE | 2018-03-31 17:44 | P.PN ---
Subjective Progress Note Date: 03/31/18 Progress note being dictated for Dr. Cleveland Interval history:58-year-old admitted with the partial small bowel obstruction patient has significant NG tube drainage patient is receiving IV fluids patient is also being treated for gastritis patient on IV Protonix. We'll try to avoid opiates for pain patient does have bowel sounds and patient does have history of a partial small bowel obstruction in the past. Patient did not move her bowel or pass gas. Constitutional: Denied any fatigue denied any fever. Cardio vascular: denied any chest pain, palpitations Gastrointestinal abdominal pain significant improved but patient remains nauseous in spite of NG tube Pulmonary: Denied any shortness of breath cough Neurologic denied any new focal deficits 03/28/2018 NG tube to low intermittent suction, repositioned with increased outflow. No bowel movement. Reports flatus yesterday but none today. Complains of improving diffuse abdominal discomfort. Follow-up abdominal x-ray reporting small bowel obstruction. Afebrile. 03/29/2018 Patient has 100 mL output from NG tube, continue with IV fluids patient does have sluggish bowel sounds are do not have any basic metabolic profile available from today which will be ordered.\ 03/30/2018 Patient had a bowel movement, nasogastric tube drainage has come down. IV for will cut down the IV fluids to 75 mL/h Constitutional: Denied any fatigue denied any fever. Cardio vascular: denied any chest pain, palpitations Gastrointestinal abdominal pain significant improved Pulmonary: Denied any shortness of breath cough Neurologic denied any new focal deficits 03/31/2018 NG clamped, positive bowel sounds, no abdominal pain, positive flatus, positive bowel movement. Objective - Vital Signs Vital signs: Vital Signs Temp 97.6 F 03/31/18 14:27 Pulse 83 03/31/18 14:27 Resp 16 03/31/18 14:27 BP 117/70 03/31/18 14:27 Pulse Ox 95 03/31/18 14:27 Intake & Output 03/30/18 03/31/18 03/31/18 18:59 06:59 18:59 Intake Total 2540 239 1011 Output Total 150 150 Balance 8607 265 9621 Weight 72.575 kg Intake: Intake, IV Titration 750 825 Amount Sodium Chloride 0.9% 1, 750 825 000 ml @ 75 mls/hr IV . [id number] [facility] Rx#:[id number] Oral 1200 400 Output: Urine 150 150 Other: Voiding Method Toilet # Voids 1 1 1 # Bowel Movements 3 - Exam GENERAL: The patient is alert and oriented x3, not in any acute distress. Well developed, well nourished. She has an NG tube in place which is presently clamped. HEENT: Pupils are round and equally reacting to light. EOMI. No scleral icterus. No conjunctival pallor. Normocephalic, atraumatic. No pharyngeal erythema. No thyromegaly. CARDIOVASCULAR: S1 and S2 present. No murmurs, rubs, or gallops. PULMONARY: Chest is clear to auscultation, no wheezing or crackles. ABDOMEN: Soft, nontender, nondistended, normoactive bowel sounds. No palpable organomegaly. MUSCULOSKELETAL: No joint swelling or deformity. EXTREMITIES: No cyanosis, clubbing, or pedal edema. NEUROLOGICAL: Gross neurological examination did not reveal any focal deficits. SKIN: No rashes. - Labs CBC & Chem 7: 03/27/18 06:34 03/30/18 06:30 Assessment and Plan Assessment: -Mild partial small bowel obstruction, NG tube, de-compression IV fluids. Appreciate surgery recommendations -Epigastric abdominal pain: Mostly secondary to gastritis improved pain with Protonix -Mild nonspecific elevation of liver enzymes repeat liver enzymes are close to normal no further workup at this time -Asymptomatic bacteriuria will not require any antibiotics at this time Plan: Continue on current medication regime ,monitoring and symptomatic treatment. Aggressive pulmonary toileting with incentive spirometer reinforced. Conservative management as per surgery. Increase ambulation as tolerated. Further recommendations to follow The impression and plan of care has been dictated as directed. : I performed a history and examination of this patient, discussed the same with the dictator. I agree with the dictator's note ,documented as a scribe. Any additional findings or plans will be noted.
== END 2018-04-01 01:34 | disposition home or self-care (01) | DRG 389 ==
LOC: EC 12:18 → 5MS5E 15:21 → 3SUR 18:03
PROVIDERS: ADMIT Internal Medicine; ATTEND Internal Medicine
DX: K56.51 Intestinal adhesions [bands], with partial obstruction (principal); J98.11 Atelectasis; K21.9 Gastro-esophageal reflux disease without esophagitis; K29.70 Gastritis, unspecified, without bleeding; R74.8 Abnormal levels of other serum enzymes; Z96.651 Presence of right artificial knee joint; Z80.0 Family history of malignant neoplasm of digestive organs; Z80.1 Family history of malignant neoplasm of trachea, bronchus and lung; Z80.3 Family history of malignant neoplasm of breast; Z87.442 Personal history of urinary calculi; Z87.891 Personal history of nicotine dependence; Z79.899 Other long term (current) drug therapy
CPT/HCPCS: 36415; 43753; 71045; 74018; 74019; 74176; 74177; 80048; 80053; 81001; 82150; 83690; 84484; 85025; 85027; 85610; 85730; 93005; 96361; 96374; 96375; 99285

== ENCOUNTER 2018-05-08 11:18 | Day surgery (SDC) | payer MEDICARE ==
[2018-04-25 14:52] VITALS: BMI 28.0
[~2018-05-08 11:18] MED LIST: DEXAMETHASONE SOD PHOSPHATE 10 MG/ML 1 ML VIAL IV ONE; HYDROmorphone 0.5 MG/0.5 ML SYRINGE IVP PRN; LACTATED RINGERS 1,000 ML IV SCH; ONDANSETRON 4 MG/2 ML VIAL IVP ONE; Pre Op ABX Message 1 EACH MISC MISCELLANE ONE; ceFAZolin IN SWFI 2 GM/20 ML SYRINGE IVP ONE
[2018-05-08 11:40] VITALS: RESP 16
[2018-05-08] MEDS ORDERED: HEPARIN SODIUM,PORCINE 5,000 UNIT/ML 1 ML VIAL SQ STA (12:05)
[2018-05-08] MEDS ORDERED: SCOPOLAMINE 1.5MG/72HR PATCH TRANSDERM ONE (12:08)
--- NOTE | 2018-05-08 12:24 | P.GSHP ---
History of Present Illness H&P Date: 05/08/18 CHIEF COMPLAINT: History of intra-abdominal adhesions HISTORY OF PRESENT ILLNESS: The patient is a 68-year-old female who presents with history of intra-abdominal adhesions from multiple prior surgeries including increasing abdominal pain. She now presents for diagnostic laparoscopy including lysis of adhesions. PAST MEDICAL HISTORY: Please see list. PAST SURGICAL HISTORY: Please see list. MEDICATIONS: Please see list. ALLERGIES: Please see list. SOCIAL HISTORY: No illicit drug use FAMILY HISTORY: No reports of Crohn disease or ulcerative colitis. REVIEW OF ORGAN SYSTEMS: CONSTITUTIONAL: No reports of fevers or chills. GI: Denies any blood in stools or constipation. PHYSICAL EXAM: VITAL SIGNS: Stable GENERAL: Well-developed pleasant and in no acute distress. HEENT: No scleral icterus. Extraocular movements grossly intact. Moist buccal mucosa. NECK: Supple without lymphadenopathy. CHEST: Unlabored respirations. Equal bilateral excursions. CARDIOVASCULAR: Regular rate and rhythm. Distal 2+ pulses. ABDOMEN: Soft, diffuse abdominal tenderness. No peritonitis. MUSCULOSKELETAL: No clubbing, cyanosis, or edema. ASSESSMENT: 1. History of small bowel obstruction 2. History of multiple abdominal surgeries. 3. Intra-abdominal adhesions. PLAN: 1. Robotic laparoscopy with lysis of adhesions with possible opel were described in detail including risk of injury to the intestine, need for further surgery, and open technique. 2. DVT prophylaxis. 3. Antibiotic prophylaxis. Past Medical History Past Medical History: GERD/Reflux, Osteoarthritis (OA), Skin Disorder Additional Past Medical History / Comment(s): Hx of bowel Obstruction x5-most recent in March 2018, diverticular disease, Hx of psoriasis,uti, kidney stones History of Any Multi-Drug Resistant Organisms: None Reported Past Surgical History: Bowel Resection, Section, Cholecystectomy, Joint Replacement, Orthopedic Surgery Additional Past Surgical History / Comment(s): 3 c-sections, rt knee replacement , kidney stone removed Past Anesthesia/Blood Transfusion Reactions: Postoperative Nausea & Vomiting ( PONV) Smoking Status: Former smoker - Past Family History Father History Unknown: Yes Sister(s) Family Medical History: Cancer Additional Family Medical History / Comment(s): i sister at age 66 from colorectal cancer and 2ns sister dx w/ stage 3 lung cancer-smoker Mother Family Medical History: Cancer Additional Family Medical History / Comment(s): breast cancer Medications and Allergies Home Medications Medication Instructions Recorded Confirmed Type Ibuprofen [Motrin] 200 mg PO DAILY PRN 01/02/15 05/05/18 History Aspirin [Adult Low Dose Aspirin EC] 81 mg PO DAILY 04/25/18 05/05/18 History Cinnamon Bark [Cinnamon] 500 mg PO DAILY 04/25/18 05/05/18 History Multivitamins, Thera [Multivitamin 1 tab PO DAILY 04/25/18 05/05/18 History (formulary)] Esomeprazole Magnesium [NexIUM] 20 mg PO DAILY 05/05/18 05/08/18 History Allergies Allergy/AdvReac Type Severity Reaction Status Date / Time nickel Allergy Rash/Hives Verified 05/08/18 11:37 Surgical - Exam Vital Signs Temp Pulse Resp BP Pulse Ox 97.5 F L 79 16 150/67 97 05/08/18 11:37 05/08/18 11:37 05/08/18 11:37 05/08/18 11:37 05/08/18 11:37
[2018-05-08] MEDS ORDERED: LIDOCAINE 1% INJ 10MG/ML (20 ML MDV) ONE (12:50)
[2018-05-08] MEDS ORDERED: PROPOFOL 10 MG/ML 20 ML VIAL IV ONE (12:50)
[2018-05-08] MEDS ORDERED: SUCCINYLCHOLINE CHLORIDE 100 MG/5 ML SYR IV ONE (12:50)
[2018-05-08] MEDS ORDERED: ePHEDrine SULFATE/0.9% NACL/PF 50 MG/5 ML SYRINGE IV ONE (12:50)
[2018-05-08] MEDS ORDERED: fentaNYL (PF) 50 MCG/ML 2 ML AMP ONE (12:50)
[2018-05-08] MEDS ORDERED: PHENYLEPHRINE-0.9% NACL SYG 1 MG/10 ML SYRINGE ONE (12:50)
[2018-05-08] MEDS ORDERED: ROCURONIUM BROMIDE 10 MG/ML 10 ML VIAL IV ONE (12:50)
[2018-05-08] MEDS ORDERED: GLYCOPYRROLATE 0.2 MG/ML 2 ML VIAL ONE (12:50)
[2018-05-08] MEDS ORDERED: NEOSTIGMINE 1 MG/ML 10 ML VIAL ONE (12:50)
[2018-05-08] MEDS ORDERED: MIDAZOLAM 2 MG/2 ML VIAL ONE (12:50)
[2018-05-08] MEDS ORDERED: ONDANSETRON 4 MG/2 ML VIAL ONE (12:50)
[2018-05-08] MEDS ORDERED: BUPIVACAIN-EPI 0.5%-1:200,000 30 ML VIAL SQ ONE (13:44)
[2018-05-08 15:32] VITALS: TEMP 97
--- NOTE | 2018-05-08 15:55 | P.OP ---
Date of Procedure: 05/08/18 Description of Procedure: SURGEON: FADIA TINOCO MD PREOPERATIVE DIAGNOSES: 1. History of previous small bowel obstruction due to peritoneal adhesions 2. Intra-abdominal peritoneal adhesions 3. Diverticulitis of previous open colectomy 4. Gastroesophageal reflux disease POSTOPERATIVE DIAGNOSES: 1. History of previous small bowel obstruction due to peritoneal adhesions 2. Intra-abdominal peritoneal adhesions 3. Diverticulitis of previous open colectomy 4. Gastroesophageal reflux disease 5. Severe peritoneal adhesions greater omentum to the abdominal wall 6. Severe interloop adhesions involving jejunum through ileum 7. Adhesions within the pelvis OPERATION: 1. Robotic-assisted da Sveta Xi laparoscopic extensive lysis of adhesions over 1 hr COMPLICATIONS: None. Anesthesia: GETA, local Estimated Blood Loss (ml): 5 Pathology: none sent Condition: stable Disposition: same day OPERATIVE FINDINGS: 1. Severe peritoneal adhesions involving epigastrium, right upper quadrant, deep pelvis. 2. Severe interloop adhesions involving jejunum through ileum INDICATIONS: The patient is a 68-year-old female with personal history of recurrent small bowel structures and personal history of severe intra-abdominal peritoneal adhesions. Surgical intervention with lysis of adhesions was described given her history of severe adhesions. Informed consent was obtained. Robotic assisted laparoscopic approach was described. Benefits and risks of the procedure including but not limited to bleeding, infection, injury to the small bowel was described. Informed consent was obtained. DESCRIPTION OF PROCEDURE: Patient was brought to the operating room, placed in supine position. After general induction, the abdomen had been prepped and draped in standard sterile fashion. The robotic da Sveta XI system was primed. After a timeout protocol was performed, the patient had been prepped and draped in standard sterile fashion. A 5 mm 0 degrees laparoscopic trocar entry was performed along the left upper quadrant. The abdomen was insufflated to 15 mmHg pressure which she tolerated well. Diagnostic laparoscopy demonstrated severe intra-abdominal adhesions involving the midline including right upper quadrant to deep pelvis. No injury to the bowel, viscera or mesentery was identified. Next, three 8 mm robotic ports were placed along the upper abdomen after exchanging the 5-mm port of the left upper quadrant. Please note that the ports were placed at least 8 cm away. Instruments were interchanged using two ports for a grasper, vessel sealer, and scissors with cautery. Instruments were interchanged by the elementary assistant principal. The patient was repositioned in Trendelenburg position of 18-degrees. The robot was docked above the patient for a pelvic view. I had sat at the console. Carefully the adhesions were taken down without injury to the small bowel using combination of scissors including vessel sealer. Omental defect were oversewn using 3-0 Vicryl to prevent internal hernias. Extensive adhesional lysis was performed where all omental adhesions were taken off the abdominal wall including into the deep pelvis. Separately, severe interloop adhesions involving the mid jejunum to proximal ileum was identified. Interloop adhesions were addressed carefully using scissors without enterotomies. No evidence of small bowel dilation was identified or acute small bowel obstruction. Given the extensive nature of interloop adhesions which were severe, total extensive lysis of adhesions over 1 hour was performed. The robot was undocked. All pneumoperitoneum and instruments were evacuated from the abdominal cavity. The incisions were reapproximated using 4-0 Monocryl in an interrupted subcuticular fashion. Please note along the trocar sites, local anesthetic was placed as a field block prior to insertion of all instruments. Liquid glue was applied to the skin. At the end of the procedure needle, sponge, and instrument count had been verified correct by the surgical sales representative. The patient was transferred to postanesthesia care unit in stable condition. Intraoperative images including findings were described to the patients family. Console time 82 minutes Plan - Discharge Summary New Discharge Prescriptions: New Ibuprofen [Motrin] 600 mg PO Q8HR PRN #30 tab PRN Reason: Pain No Action Ibuprofen [Motrin] 200 mg PO DAILY PRN PRN Reason: Pain Multivitamins, Thera [Multivitamin (formulary)] 1 tab PO DAILY Cinnamon Bark [Cinnamon] 500 mg PO DAILY Aspirin [Adult Low Dose Aspirin EC] 81 mg PO DAILY Esomeprazole Magnesium [NexIUM] 20 mg PO DAILY Discharge Medication List Ibuprofen [Motrin] 200 mg PO DAILY PRN 01/02/15 [History] Aspirin [Adult Low Dose Aspirin EC] 81 mg PO DAILY 04/25/18 [History] Cinnamon Bark [Cinnamon] 500 mg PO DAILY 04/25/18 [History] Multivitamins, Thera [Multivitamin (formulary)] 1 tab PO DAILY 04/25/18 [History ] Esomeprazole Magnesium [NexIUM] 20 mg PO DAILY 05/05/18 [History] Ibuprofen [Motrin] 600 mg PO Q8HR PRN #30 tab 05/08/18 [Rx] Follow up Appointment(s)/Referral(s): Faida Tinoco MD [STAFF PHYSICIAN] - 05/13/18 Patient Instructions/Handouts: Lysis of Abdominal Adhesions (DC) Activity/Diet/Wound Care/Special Instructions: May shower. No bath tub soaks. No lifting for 4 pounds in 1 week. Discharge Disposition: HOME SELF-CARE
[2018-05-08] MEDS ORDERED: fentaNYL (PF) 50 MCG/ML 2 ML AMP IVP ONE (15:59)
[2018-05-08 16:50] VITALS: PULSE 80
[2018-05-08 17:05] VITALS: BP 100/66
== END 2018-05-08 17:20 | disposition home or self-care (01) ==
LOC: OR 11:18
PROVIDERS: ATTEND Surgery Plastic and Reconstructive Surgery
DX: K66.0 Peritoneal adhesions (postprocedural) (postinfection) (principal); K57.32 Diverticulitis of large intestine without perforation or abscess without bleeding; Z90.49 Acquired absence of other specified parts of digestive tract; K21.9 Gastro-esophageal reflux disease without esophagitis; R94.31 Abnormal electrocardiogram [ECG] [EKG]; M19.90 Unspecified osteoarthritis, unspecified site; L40.9 Psoriasis, unspecified; Z79.899 Other long term (current) drug therapy; Z79.82 Long term (current) use of aspirin; Z96.651 Presence of right artificial knee joint; Z87.891 Personal history of nicotine dependence; Z88.5 Allergy status to narcotic agent; Z91.048 Other nonmedicinal substance allergy status
CPT/HCPCS: 44180; J2250; J1644; J1100; J2710; J2405; J2001; J3010; J2370; J0330; J2704; J0690

== ENCOUNTER 2018-06-11 09:00 | Day surgery (SDC) | payer MEDICARE ==
[2018-06-06 14:02] VITALS: BMI 27.1
--- NOTE | 2018-06-10 22:43 | P.GSHP ---
History of Present Illness H&P Date: 06/11/18 CHIEF COMPLAINT: Colon screen HISTORY OF PRESENT ILLNESS: The patient is a 68-year-old female who presents for colon screen. Lower endoscopy was offered for further evaluation and management. PAST MEDICAL HISTORY: Please see list. PAST SURGICAL HISTORY: Please see list. MEDICATIONS: Please see list. ALLERGIES: Please see list. SOCIAL HISTORY: No illicit drug use FAMILY HISTORY: No reports of Crohn disease or ulcerative colitis. REVIEW OF ORGAN SYSTEMS: CONSTITUTIONAL: No reports of fevers or chills. PHYSICAL EXAM: VITAL SIGNS: Stable GENERAL: Well-developed pleasant in no acute distress. HEENT: No scleral icterus. Extraocular movements grossly intact. Moist buccal mucosa. NECK: Supple without lymphadenopathy. CHEST: Unlabored respirations. Equal bilateral excursions. CARDIOVASCULAR: Regular rate and rhythm. Distal 2+ pulses. ABDOMEN: Soft, nontender, nondistended. MUSCULOSKELETAL: No clubbing, cyanosis, or edema. ASSESSMENT: 1. Colon screen. PLAN: 1. Recommend proceeding with a lower endoscopy Past Medical History Past Medical History: GERD/Reflux, Osteoarthritis (OA), Skin Disorder Additional Past Medical History / Comment(s): Hx of bowel Obstruction x5-most recent in March 2018, diverticular disease, Hx of psoriasis,uti, kidney stone(sx) History of Any Multi-Drug Resistant Organisms: None Reported Past Surgical History: Bowel Resection, Section, Cholecystectomy, Joint Replacement, Orthopedic Surgery Additional Past Surgical History / Comment(s): rt knee replacement, kidney stone removed;" laparoscopy to remove scar tissues" Past Anesthesia/Blood Transfusion Reactions: Postoperative Nausea & Vomiting ( PONV) Smoking Status: Former smoker - Past Family History Father History Unknown: Yes Sister(s) Family Medical History: Cancer Additional Family Medical History / Comment(s): i sister at age 66 from colorectal cancer and 2ns sister dx w/ stage 3 lung cancer-smoker Mother Family Medical History: Cancer Additional Family Medical History / Comment(s): breast cancer Medications and Allergies Home Medications Medication Instructions Recorded Confirmed Type Ibuprofen [Motrin] 200 mg PO DAILY PRN 01/02/15 06/06/18 History Aspirin [Adult Low Dose Aspirin EC] 81 mg PO DAILY 04/25/18 06/06/18 History Cinnamon Bark [Cinnamon] 500 mg PO DAILY 04/25/18 06/06/18 History Multivitamins, Thera [Multivitamin 1 tab PO DAILY 04/25/18 06/06/18 History (formulary)] Esomeprazole Magnesium [NexIUM] 20 mg PO DAILY 05/05/18 06/06/18 History Ibuprofen [Motrin] 600 mg PO Q8HR PRN #30 tab 05/08/18 06/06/18 Rx Allergies Allergy/AdvReac Type Severity Reaction Status Date / Time nickel Allergy Rash/Hives Verified 06/06/18 13:48
[~2018-06-11 09:00] MED LIST changes: -DEXAMETHASONE SOD PHOSPHATE 10 MG/ML 1 ML VIAL IV ONE; -HYDROmorphone 0.5 MG/0.5 ML SYRINGE IVP PRN; -ONDANSETRON 4 MG/2 ML VIAL IVP ONE; -Pre Op ABX Message 1 EACH MISC MISCELLANE ONE; -ceFAZolin IN SWFI 2 GM/20 ML SYRINGE IVP ONE
[2018-06-11 09:19] VITALS: TEMP 97.9
[2018-06-11] MEDS ORDERED: LIDOCAINE 1% INJ 10MG/ML (20 ML MDV) ONE (09:54)
[2018-06-11] MEDS ORDERED: PROPOFOL 10 MG/ML 20 ML VIAL IV ONE (09:54)
[2018-06-11 10:17] VITALS: PULSE 67
--- NOTE | 2018-06-11 10:24 | P.PCN ---
Date of Procedure: 06/11/18 Description of Procedure: PREOPERATIVE DIAGNOSIS: Colonoscopy screening. Family history of colon cancer, sister History of diverticulosis with previous perforation and bowel resection POSTOPERATIVE DIAGNOSIS: Colonoscopy screening. Family history of colon cancer, sister History of diverticulosis with previous perforation and bowel resection Diverticulosis, scattered. OPERATION: Colonoscopy to the ileocecal valve and appendiceal orifice. SURGEON: Fadia Tinoco MD. ANESTHESIA: MAC. INDICATIONS: The patient is a 68-year-old female who presents for colonoscopy screening. Last colonoscopy is over 5 years ago. Benefits and risks were described and informed consent was obtained. DESCRIPTION OF PROCEDURE: The patient had undergone Gatorade, MiraLAX and Dulcolax prep. She had been brought into the operating room and laid in the left lateral decubitus position. After adequate intravenous sedation, the rectum was examined with 2% lidocaine jelly. No external hemorrhoids were encountered. The rectal tone was within normal limits. No lesions were palpated in the rectal vault. An Olympus colonoscope was advanced until the ileocecal valve and appendiceal orifice were clearly viewed. The prep was excellent with clear visualization of the mucosal folds. The scope was removed with visualization of each mucosal fold. Scattered diverticulosis was encountered. No colonic polyps were found. No evidence of focal colitis was found. Retroflexion of the scope demonstrated grade 1 internal hemorrhoids without active bleeding or inflammation. The colon was desufflated. The patient had tolerated the procedure well. Withdrawal time was over 6 minutes. FINDINGS: Internal hemorrhoids, grade 1 No external prolapsed hemorrhoids. No arteriovenous malformations. No adenomatous polyps. Scattered diverticulosis No focal colitis. RECOMMENDATIONS: Lower in 5 years, 2022, with family history of cancer. Plan - Discharge Summary New Discharge Prescriptions: No Action Ibuprofen [Motrin] 200 mg PO DAILY PRN PRN Reason: Pain Multivitamins, Thera [Multivitamin (formulary)] 1 tab PO DAILY Cinnamon Bark [Cinnamon] 500 mg PO DAILY Aspirin [Adult Low Dose Aspirin EC] 81 mg PO DAILY Esomeprazole Magnesium [NexIUM] 20 mg PO DAILY Ibuprofen [Motrin] 600 mg PO Q8HR PRN #30 tab PRN Reason: Pain Discharge Medication List Ibuprofen [Motrin] 200 mg PO DAILY PRN 01/02/15 [History] Aspirin [Adult Low Dose Aspirin EC] 81 mg PO DAILY 04/25/18 [History] Cinnamon Bark [Cinnamon] 500 mg PO DAILY 04/25/18 [History] Multivitamins, Thera [Multivitamin (formulary)] 1 tab PO DAILY 04/25/18 [History ] Esomeprazole Magnesium [NexIUM] 20 mg PO DAILY 05/05/18 [History] Ibuprofen [Motrin] 600 mg PO Q8HR PRN #30 tab 05/08/18 [Rx]
[2018-06-11 10:35] VITALS: BP 122/71; RESP 18
== END 2018-06-11 10:45 | disposition home or self-care (01) ==
LOC: ORWHC2ENDO 09:00
PROVIDERS: ATTEND Surgery Plastic and Reconstructive Surgery
DX: Z12.11 Encounter for screening for malignant neoplasm of colon (principal); K57.30 Diverticulosis of large intestine without perforation or abscess without bleeding; K64.0 First degree hemorrhoids; Z80.0 Family history of malignant neoplasm of digestive organs; Z90.49 Acquired absence of other specified parts of digestive tract; K21.9 Gastro-esophageal reflux disease without esophagitis; Z87.891 Personal history of nicotine dependence; Z87.442 Personal history of urinary calculi; Z79.82 Long term (current) use of aspirin; Z79.899 Other long term (current) drug therapy; Z91.09 Other allergy status, other than to drugs and biological substances; M19.90 Unspecified osteoarthritis, unspecified site
CPT/HCPCS: J2001; J2704; G0105

== ENCOUNTER → 2018-06-27 | Outpatient (CLI) | payer MEDICARE ==
--- NOTE | 2018-06-30 13:42 | MM ---
Reason for exam: screening (asymptomatic). Last mammogram was performed 1 year and 2 months ago. History: Patient is postmenopausal. Family history of premenopausal breast cancer in maternal cousin at age 40, breast cancer in mother at age 70, and breast cancer in maternal aunt at age 60. Benign excisional biopsy of the right breast, April 30, 2002. Core biopsy of the left breast. Excisional biopsy of the left breast. Took estrogen for 1 year. Took progesterone for 1 year. Physical Findings: A clinical breast exam by your physician is recommended on an annual basis and results should be correlated with mammographic findings. MG 3D Screening Mammo W/Cad Bilateral CC, MLO, and XCCL view(s) were taken. Technologist: RT Joanie (R)(M) Prior study comparison: May 09, 2017, bilateral MG 3d screening mammo w/cad. May 08, 2016, bilateral MG 3d screening mammo w/cad. The breast tissue is heterogeneously dense. This may lower the sensitivity of mammography. Finding: There are typically benign circumscribed round oval masses in the left breast. No suspicious abnormality. Post biopsy change on the left and right. No significant changes in finding since May 09, 2017 and May 08, 2016. ASSESSMENT: Benign, BI-RAD 2 RECOMMENDATION: Routine screening mammogram of both breasts in 1 year.
== END | disposition home or self-care (01) ==
LOC: RADMAMWWP 14:39
PROVIDERS: ATTEND Family Medicine
DX: Z12.31 Encounter for screening mammogram for malignant neoplasm of breast (principal)
CPT/HCPCS: 77063; 77067

== ENCOUNTER → 2020-05-18 | Outpatient (CLI) | payer MEDICARE ==
--- NOTE | 2020-05-19 09:04 | MM ---
Reason for exam: screening (asymptomatic). Last mammogram was performed 1 year and 11 months ago. History: Patient is postmenopausal. Family history of premenopausal breast cancer in maternal cousin at age 40, breast cancer in mother at age 70, and breast cancer in maternal aunt at age 60. Benign excisional biopsy of the right breast, April 30, 2002. Core biopsy of the left breast. Excisional biopsy of the left breast. Took estrogen for 1 year. Took progesterone for 1 year. Physical Findings: A clinical breast exam by your physician is recommended on an annual basis and results should be correlated with mammographic findings. MG Screening Mammo w CAD Bilateral CC and MLO view(s) were taken. Prior study comparison: June 27, 2018, bilateral MG 3d screening mammo w/cad. May 09, 2017, bilateral MG 3d screening mammo w/cad. The breast tissue is heterogeneously dense. This may lower the sensitivity of mammography. Finding: There are typically benign dystrophic, round calcifications in both breasts. There is a chronic nodularity in the left breast. Focal asymmetry 3-4mm right anterior depth inferior position. New finding since June 27, 2018 and May 09, 2017. ASSESSMENT: Incomplete: need additional imaging evaluation, BI-RAD 0 RECOMMENDATION: Special view mammogram of the right breast. If lesion persists on supplemental views, image directed ultrasound is recommended. [facility] will attempt to contact patient to return for supplemental views and ultrasound if indicated.
== END | disposition home or self-care (01) ==
LOC: RADMAMWWP 09:10
PROVIDERS: ATTEND Family Medicine
DX: Z12.31 Encounter for screening mammogram for malignant neoplasm of breast (principal)
CPT/HCPCS: 77067

== ENCOUNTER → 2020-05-20 | Outpatient (CLI) | payer MEDICARE ==
--- NOTE | 2020-05-20 08:57 | MM ---
Reason for exam: additional evaluation requested from abnormal screening. Last mammogram was performed less than 1 month ago. History: Patient is postmenopausal. Family history of premenopausal breast cancer in maternal cousin at age 40, breast cancer in mother at age 70, and breast cancer in maternal aunt at age 60. Benign excisional biopsy of the right breast, April 30, 2002. Core biopsy of the left breast. Excisional biopsy of the left breast. Took estrogen for 1 year. Took progesterone for 1 year. Physical Findings: Nurse did not find any significant physical abnormalities on exam. MG 3D Work Up W/Cad RT Spot compression CC, spot compression MLO, and LM view(s) were taken of the right breast. Prior study comparison: May 18, 2020, bilateral MG screening mammo w CAD. June 27, 2018, bilateral MG 3d screening mammo w/cad. The breast tissue is heterogeneously dense. This may lower the sensitivity of mammography. There is no discrete abnormality. These results were verbally communicated with the patient and result sheet given to the patient on 05/20/20. ASSESSMENT: Benign, BI-RAD 2 RECOMMENDATION: Return to routine screening mammogram schedule for both breasts.
== END | disposition home or self-care (01) ==
LOC: RADMAMWWP 07:06
PROVIDERS: ATTEND Family Medicine
DX: R92.8 Other abnormal and inconclusive findings on diagnostic imaging of breast (principal)
CPT/HCPCS: 77065; G0279; 77061

== ENCOUNTER → 2020-10-26 | Outpatient (CLI) | payer MEDICARE ==
[2020-10-26 15:48] LABS: INR 0.89 (0.90-1.11); Prothrombin Time 9.8 sec (9.9-11.9)
[2020-10-26 16:33] LABS: Alpha Fetoprotein, Tumor Mkr 6.2 ng/mL (0.0-7.9)
[2020-10-26 16:39] LABS: Protein, Total 7.2 g/dL (6.2-8.2)
[2020-10-26 17:17] LABS: Hepatitis A Antibody IgM Non-Reactive (Non-Reactive); Hepatitis B Core IgM Non-Reactive (Non-Reactive); Hepatitis B Surface Antigen Non-Reactive (Non-Reactive); Hepatitis C IgG Antibody Non-Reactive (Non-Reactive)
[2020-10-26 17:45] LABS: Basophils # (A) 0.06 X 10*3/uL (0.00-0.10); Basophils % (A) 0.9 %; Eosinophils # (A) 0.11 X 10*3/uL (0.04-0.35); Eosinophils % (A) 1.7 %; HGB 14.3 g/dL (12.0-15.0); Lymphocytes # (A) 1.94 X 10*3/uL (0.90-5.00); Lymphocytes % (A) 29.5 %; MCH 31.2 pg (27.0-32.0); MCHC 31.8 g/dL (32.0-37.0); MCV 98.3 fL (80.0-97.0); Mean Platelet Volume 13.7 fL (9.5-12.2); Monocytes # (A) 0.51 X 10*3/uL (0.20-1.00); Monocytes % (A) 7.8 %; Neutrophils # (A) 3.94 X 10*3/uL (1.80-7.70); Neutrophils % (A) 59.9 %; Platelet Count 222 X 10*3/uL (140-440); RBC 4.58 X 10*6/uL (4.10-5.20); RDW 12.5 % (11.5-14.5); WBC 6.57 X 10*3/uL (4.50-10.00)
[2020-10-26 19:59] LABS: % Iron Saturation 27.82 (12.00-45.00); African American GFR (CKD) 100.3 (60.0-200.0); Albumin 4.9 g/dL (3.80-4.90); Albumin/Globulin Ratio 2.04 (1.60-3.17); Anion Gap 8.1 mmol/L (4.00-12.00); BUN/Creat Ratio 21.43 Ratio (12.00-20.00); Calcium 9.6 mg/dL (8.7-10.3); Carbon Dioxide 28.9 mmol/L (21.6-31.8); Globulin 2.4 g/dL (1.6-3.3); Non-African American GFR(CKD) 86.6 (60.0-200.0); Potassium 4.2 mmol/L (3.5-5.5); Total Bilirubin 0.6 mg/dL (0.3-1.2); Total Protein 7.3 g/dL (6.2-8.2)
[2020-10-27 11:47] LABS: Liver/Kidney Microsome Antibod 1.5 UNITS (<=20)
[2020-10-27 13:45] LABS: Ceruloplasmin 29.5 mg/dL (20.0-60.0)
[2020-10-27 14:59] LABS: Albumin 3.97 g/dL (3.80-4.90); Gamma Globulin 0.88 g/dL (0.70-1.50)
== END | disposition home or self-care (01) ==
LOC: LABWHC1 08:58
PROVIDERS: ATTEND Nurse Practitioner
DX: R74.01 Elevation of levels of liver transaminase levels (principal)
CPT/HCPCS: 36415; 80053; 80074; 82103; 82105; 82390; 82728; 83516; 83540; 83550; 84165; 85025; 85610; 86038; 86376

== ENCOUNTER → 2021-05-24 | Outpatient (CLI) | payer MEDICARE ==
[2021-05-24 23:39] LABS: ALT 40 U/L (8-44); AST 35 U/L (13-35); Albumin/Globulin Ratio 1.91 (1.60-3.17); Alkaline Phosphatase 134 U/L (41-126); Bilirubin, Conjugated <0.20 mg/dL (0.20-0.40); Globulin 2.3 g/dL (1.6-3.3); Total Bilirubin 0.4 mg/dL (0.3-1.2); Total Protein 6.7 g/dL (6.2-8.2)
== END | disposition home or self-care (01) ==
LOC: LABWHC1 08:23
PROVIDERS: ATTEND Nurse Practitioner
DX: R74.01 Elevation of levels of liver transaminase levels (principal)
CPT/HCPCS: 36415; 80076

== ENCOUNTER → 2021-06-09 | Outpatient (CLI) | payer MEDICARE ==
--- NOTE | 2021-06-12 11:58 | MM ---
Reason for exam: screening (asymptomatic). Last mammogram was performed 1 year and 1 month ago. History: Patient is postmenopausal. Family history of premenopausal breast cancer in maternal cousin at age 40, breast cancer in mother at age 70, and breast cancer in maternal aunt at age 60. Benign excisional biopsy of the right breast, April 30, 2002. Core biopsy of the left breast. Excisional biopsy of the left breast. Took estrogen for 1 year. Took progesterone for 1 year. Physical Findings: A clinical breast exam by your physician is recommended on an annual basis and results should be correlated with mammographic findings. MG Screening Mammo w CAD Bilateral CC and MLO view(s) were taken. Prior study comparison: May 20, 2020, right breast MG 3d work up w/cad RT. May 18, 2020, bilateral MG screening mammo w CAD. June 27, 2018, bilateral MG 3d screening mammo w/cad. The breast tissue is heterogeneously dense. This may lower the sensitivity of mammography. There are benign appearing round calcifications bilaterally. There is chronic nodularity in the left breast. There is no discrete abnormality. ASSESSMENT: Benign, BI-RAD 2 RECOMMENDATION: Routine screening mammogram of both breasts in 1 year.
== END | disposition home or self-care (01) ==
LOC: RADMAMWWP 08:37
PROVIDERS: ATTEND Family Medicine
DX: Z12.31 Encounter for screening mammogram for malignant neoplasm of breast (principal); Z80.3 Family history of malignant neoplasm of breast; Z78.0 Asymptomatic menopausal state
CPT/HCPCS: 77067

== ENCOUNTER → 2022-05-21 | Outpatient (CLI) | payer MEDICARE ==
[2022-05-21 22:30] LABS: Basophils # (A) 0.06 X 10*3/uL (0.00-0.10); Basophils % (A) 0.8 %; Eosinophils # (A) 0.13 X 10*3/uL (0.04-0.35); Eosinophils % (A) 1.7 %; HCT 40.7 % (37.2-46.3); HGB 12.9 g/dL (12.0-15.0); Immature Grans, Automated 0.4 %; Lymphocytes # (A) 2.21 X 10*3/uL (0.90-5.00); Lymphocytes % (A) 28.3 %; MCH 31.5 pg (27.0-32.0); MCHC 31.7 g/dL (32.0-37.0); MCV 99.5 fL (80.0-97.0); Mean Platelet Volume 12.2 fL (9.5-12.2); Monocytes # (A) 0.69 X 10*3/uL (0.20-1.00); Monocytes % (A) 8.8 %; NRBC Per 100 WBC 0 /100 WBCS (0.0-0.0); Neutrophils # (A) 4.68 X 10*3/uL (1.80-7.70); Platelet Count 225 X 10*3/uL (140-440); RBC 4.09 X 10*6/uL (4.10-5.20); RDW 12.8 % (11.5-14.5)
[2022-05-21 23:31] LABS: Erythrocyte Sedimentation Rate 19 mm/Hr (0-30)
== END | disposition home or self-care (01) ==
LOC: LABWHC1 16:18
PROVIDERS: ATTEND Orthopaedic Surgery
DX: M25.561 Pain in right knee (principal)
CPT/HCPCS: 36415; 85025; 85652; 86140

== ENCOUNTER → 2022-06-12 | Outpatient (CLI) | payer MEDICARE ==
--- NOTE | 2022-06-12 12:47 | MM ---
Reason for Exam: Screening (asymptomatic). Last screening mammogram was performed 12 month(s) ago. Patient History: Menarche at age 11. First Full-Term at age 23. Postmenopausal. Patient used Estrogen for 1 year. Patient used Progesterone for 1 year. Core Biopsy on the Left side. Excisional Biopsy on the Left side. 04/30/2002, Benign Excisional Biopsy on the right side. Maternal cousin had breast cancer, age 40. Maternal aunt had breast cancer, age 60. Mother had breast cancer, age 70. Risk Values: Destiny 5 year model risk: 5.2%. NCI Lifetime model risk: 11.6%. Prior Study Comparison: 05/18/2020 Bilateral Screening Mammogram, [facility]. 05/20/2020 Right Diagnostic Mammogram, [facility]. 06/09/2021 Bilateral Screening Mammogram, [facility]. Tissue Density: The breast tissue is heterogeneously dense. This may lower the sensitivity of mammography. Findings: Analyzed By CAD. Some scattered small benign-appearing round calcifications throughout the bilateral breasts are redemonstrated. Stable small well-circumscribed round masses centrally in the left breast versus several prior mammograms on background dense tissue. There is no suspicious new group of microcalcifications or new distortion in either breast. Overall Assessment: Benign, BI-RAD 2 Management: Screening Mammogram of both breasts in 1 year. A clinical breast exam by your physician is recommended on an annual basis and results should be correlated with mammographic findings. Electronically signed and approved by: Juan Guaman M.D.
== END | disposition home or self-care (01) ==
LOC: RADMAMWWP 10:52
PROVIDERS: ATTEND Family Medicine
DX: Z12.31 Encounter for screening mammogram for malignant neoplasm of breast (principal); Z78.0 Asymptomatic menopausal state; Z80.3 Family history of malignant neoplasm of breast
CPT/HCPCS: 77063; 77067

== ENCOUNTER → 2023-06-13 | Outpatient (CLI) | payer MEDICARE ==
--- NOTE | 2023-06-14 09:25 | MM ---
Reason for Exam: Screening (asymptomatic). Last screening mammogram was performed 12 month(s) ago. Patient History: Menarche at age 11. First Full-Term at age 23. Postmenopausal. Patient used Estrogen for 1 year. Patient used Progesterone for 1 year. Core Biopsy on the Left side. Excisional Biopsy on the Left side. 04/30/2002, Benign Excisional Biopsy on the right side. Maternal cousin had breast cancer, age 40. Maternal aunt had breast cancer, age 60. Maternal cousin had breast cancer at or over age 50. Mother had breast cancer, age 70. Risk Values: Destiny 5 year model risk: 5.2%. NCI Lifetime model risk: 10.9%. Prior Study Comparison: 05/20/2020 Right Diagnostic Mammogram, [facility]. 06/09/2021 Bilateral Screening Mammogram, [facility]. 06/12/2022 Bilateral MG 3D screening mammo w/cad, [facility]. Tissue Density: The breast tissue is heterogeneously dense. This may lower the sensitivity of mammography. Findings: Analyzed By CAD. There is no suspicious group of microcalcifications or new suspicious mass in either breast. Overall Assessment: Benign, BI-RAD 2 Management: Screening Mammogram of both breasts in 1 year. . Patient should continue monthly self-breast exams. A clinical breast exam by your physician is recommended on an annual basis. This exam should not preclude additional follow-up of suspicious palpable abnormalities. Note on Destiny scores and lifetime risk: 1. A Destiny score greater than 3% is considered moderate risk. If this is the case, consider specialist referral to assess eligibility for a risk reducing agent. 2. If overall lifetime risk for the development of breast cancer is 20% or higher, the patient may qualify for future screening with alternating mammogram and breast MRI. Electronically signed and approved by: Refugio Guo M.D. Radiologis
== END | disposition home or self-care (01) ==
LOC: RADMAMWWP 08:11
PROVIDERS: ATTEND Family Medicine
DX: Z12.31 Encounter for screening mammogram for malignant neoplasm of breast (principal); Z78.0 Asymptomatic menopausal state; Z80.3 Family history of malignant neoplasm of breast
CPT/HCPCS: 77063; 77067

== ENCOUNTER 2023-06-14 07:49 | Day surgery (SDC) | payer MEDICARE ==
[~2023-06-14 07:49] MED LIST changes: +LIDOCAINE 1% (10MG/ML) FOR IV START INTRADERMA PRN
[2023-06-14 08:15] VITALS: TEMP 97.5
[2023-06-14] MEDS ORDERED: ONDANSETRON 4 MG/2 ML VIAL ONE (08:57)
[2023-06-14] MEDS ORDERED: LIDOCAINE 1% INJ 10MG/ML (20 ML MDV) ONE (08:57)
[2023-06-14] MEDS ORDERED: PROPOFOL 10 MG/ML 20 ML VIAL IV ONE (08:57)
--- NOTE | 2023-06-14 09:16 | P.PCN ---
Date of Procedure: 06/14/23 Procedure(s) Performed: BRIEF HISTORY: Patient is a 73-year-old pleasant female scheduled for an elective colonoscopy as a part of screening for colon cancer and family history of colon cancer. Her sister was diagnosed with colon cancer at age 65. PROCEDURE PERFORMED: Colonoscopy. PREOPERATIVE DIAGNOSIS: Screening for colon cancer and family history of colon cancer. IV sedation per Anesthesia. PROCEDURE: After informed consent was obtained, the patient, was brought into the endoscopy unit. IV sedation was administered by Anesthesia under continuous monitoring. Digital rectal examination was normal. Initially the Olympus CF-160 flexible video colonoscope was then inserted in the rectum, gradually advanced into the cecum without any difficulty. Careful examination was performed as the scope was gradually being withdrawn. Ileocecal valve and the appendiceal orifice were visualized and appeared normal. Prep was excellent. Mucosa of the cecum, ascending colon, transverse colon, descending colon, sigmoid colon, and rectum appeared normal. Scattered sigmoid diverticulosis. Retroflexion was performed in the rectum and no lesions were seen. The patient tolerated the procedure well. IMPRESSION: Normal-appearing colon from rectum to cecum with no evidence of colorectal neoplasia. Scattered sigmoid diverticula RECOMMENDATIONS: Findings of this examination were discussed with the patient as well as her family. She was advised to have a repeat screening colonoscopy in 5 years because of the family history of colon cancer.
[2023-06-14 10:08] VITALS: BP 126/75; PULSE 61; RESP 17
== END 2023-06-14 09:55 | disposition home or self-care (01) ==
LOC: ORWHC2ENDO 07:49
PROVIDERS: ATTEND Internal Medicine Gastroenterology
DX: Z12.11 Encounter for screening for malignant neoplasm of colon (principal); K57.30 Diverticulosis of large intestine without perforation or abscess without bleeding; K21.9 Gastro-esophageal reflux disease without esophagitis; F10.90 Alcohol use, unspecified, uncomplicated; Z80.0 Family history of malignant neoplasm of digestive organs; Z79.899 Other long term (current) drug therapy; Z87.891 Personal history of nicotine dependence; Z98.890 Other specified postprocedural states
CPT/HCPCS: J2405; J2001; J2704; G0105

== ENCOUNTER 2023-06-29 21:00 | Emergency (ER) | payer MEDICARE ==
[2023-06-29] MEDS ORDERED: CYCLOBENZAPRINE 10 MG TAB PO STA (21:36)
[2023-06-29] MEDS ORDERED: predniSONE 20 MG TAB PO STA (21:36)
[2023-06-29] MEDS ORDERED: KETOROLAC 15 MG/ML 1 ML VIAL IM STA (21:36)
[2023-06-29 21:40] VITALS: TEMP 98.9
--- NOTE | 2023-06-29 21:40 | ED ---
Extremity Problem HPI - General Chief complaint: Extremity Problem,Nontraumatic Stated complaint: Possible Covid Hip Pain Time Seen by Provider: 06/29/23 21:05 Source: patient Mode of arrival: wheelchair Limitations: no limitations - History of Present Illness Initial comments: 73-year-old female presents emergency department reporting to right-sided lower back pain which radiates into her right buttock. She also reports to myalgias and upper respiratory symptoms. States that her recently tested positive for Covid. She feels as if she may have caught Covid from him. She did not take any home tests. She does have a history of spinal stenosis with low back pain however states that this pain is much more significant than what she is used to dealing with. She has been taking Motrin at home without any improvement in the pain she denies any saddle anesthesia. No bowel or bladder incontinence. He does admit to nasal congestion and sinus pain. No headaches. Denies fevers. Does admit to body aches. No chest pain or shortness of breath. No underlying history of lung disorders. No other alleviating, precipitating or modifying factors - Related Data Home Medications Medication Instructions Recorded Confirmed Propranolol HCl 10 mg PO DAILY 06/11/23 06/11/23 rOPINIRole HCL 0.25 mg PO HS 06/11/23 06/11/23 Previous Rx's Medication Instructions Recorded Lidocaine 5% Patch [Lidoderm] 1 patch TOPICAL DAILY #25 patch 06/29/23 Nirmatrelvir/Ritonavir [Paxlovid 1 each PO BID #1 pack 06/29/23 2X150 mg-100 mg (Eua)] methocarbamoL [Robaxin-750] 750 mg PO QID PRN #25 tab 06/29/23 predniSONE [Deltasone] 20 mg PO BID #10 tab 06/29/23 Allergies Allergy/AdvReac Type Severity Reaction Status Date / Time nickel Allergy Rash/Hives Verified 06/29/23 21:07 Review of Systems ROS Statement: Those systems with pertinent positive or pertinent negative responses have been documented in the HPI. ROS Other: All systems not noted in ROS Statement are negative. Past Medical History Past Medical History: Cancer, GERD/Reflux, Osteoarthritis (OA), Skin Disorder Additional Past Medical History / Comment(s): Hx of bowel Obstruction x5-most recent in March 2018, diverticular disease, Hx of psoriasis,uti, kidney stone(sx) basal cell, restless leg, hand shaking, fatty liver syndrome History of Any Multi-Drug Resistant Organisms: None Reported Past Surgical History: Bowel Resection, Section, Cholecystectomy, Joint Replacement, Orthopedic Surgery Additional Past Surgical History / Comment(s): 3 c-sections, rt knee replacement, kidney stone removed, Past Anesthesia/Blood Transfusion Reactions: Postoperative Nausea & Vomiting (PONV) Past Psychological History: No Psychological Hx Reported Smoking Status: Former smoker - Past Family History Father History Unknown: Yes Sister(s) Family Medical History: Cancer Additional Family Medical History / Comment(s): i sister at age 66 from colorectal cancer and 2ns sister dx w/ stage 3 lung cancer-smoker Mother Family Medical History: Cancer Additional Family Medical History / Comment(s): breast cancer General Exam Limitations: no limitations General appearance: alert, in no apparent distress Head exam: Present: atraumatic, normocephalic, normal inspection Eye exam: Present: normal appearance, PERRL, EOMI. Absent: scleral icterus, conjunctival injection, periorbital swelling ENT exam: Present: normal exam, mucous membranes moist Neck exam: Present: normal inspection. Absent: tenderness, meningismus, lymphadenopathy Respiratory exam: Present: normal lung sounds bilaterally. Absent: respiratory distress, wheezes, rales, rhonchi, stridor Cardiovascular Exam: Present: regular rate, normal rhythm, normal heart sounds. Absent: systolic murmur, diastolic murmur, rubs, gallop, clicks GI/Abdominal exam: Present: soft, normal bowel sounds. Absent: distended, tenderness, guarding, rebound, rigid Extremities exam: Present: normal inspection, full ROM, normal capillary refill. Absent: tenderness, pedal edema, joint swelling, calf tenderness Back exam: Present: other (Patient has pain at the right SI joint to palpation. She does have 5 out of 5 strength in the bilateral lower extremities with soft compartments. She does have intact sensation in the lower extremities. Positive straight leg raise bilaterally with the right being worse than the left) Neurological exam: Present: alert, oriented X3, CN II-XII intact Psychiatric exam: Present: normal affect, normal mood Skin exam: Present: warm, dry, intact, normal color. Absent: rash Course Vital Signs 06/29/23 06/29/23 21:04 23:50 Temperature 98.9 F Pulse Rate 72 79 Respiratory 18 20 Rate Blood Pressure 122/80 113/75 O2 Sat by Pulse 98 95 Oximetry Medical Decision Making - Medical Decision Making Was pt. sent in by a medical professional or institution (THIAGO Rust, PE TEACHER, urgent care, hospital, or long-term...) When possible be specific @ -No Did you speak to anyone other than the patient for history (EMS, parent, family, police, friend...)? What history was obtained from this source @ -Spoke with the patient's Did you review nursing and triage notes (agree or disagree)? Why? @ -I reviewed and agree with nursing and triage notes Were old charts reviewed (outside hosp., previous admission, EMS record, old EKG, old radiological studies, urgent care reports/EKG's, long-term records)? Report findings @ -No old charts were reviewed Differential Diagnosis (chest pain, altered mental status, abdominal pain women, abdominal pain men, vaginal bleeding, weakness, fever, dyspnea, syncope, headache, dizziness, GI bleed, back pain, seizure, CVA, palpatations, mental health, musculoskeletal)? @ -Differential Back Pain: Strain, zoster, cauda equina syndrome, epidural abscess, vertebral osteomyelitis, discitis, fracture, subluxation, disc herniation, DJD, spinal stenosis, dissection, AAA, pancreatitis, peptic ulcer disease, pyelonephritis, kidney stone, this is not meant to be an all-inclusive list. EKG interpreted by me (3pts min.). @ -Not done X-rays interpreted by me (1pt min.). @ -None done CT interpreted by me (1pt min.). @ -None done U/S interpreted by me (1pt. min.). @ -None done What testing was considered but not performed or refused? (CT, X-rays, U/S, labs)? Why? @ -None What meds were considered but not given or refused? Why? @ -None Did you discuss the management of the patient with other professionals (professionals i.e. THIAGO Rust, PE TEACHER, lab, RT, psych nurse, executive secretary social welfare, glue specialty supervisor, te acher, chief resource officer, bottle caser)? Give summary @ -No Was smoking cessation discussed for >3mins.? @ -No Was critical care preformed (if so, how long)? @ -No Were there social determinants of health that impacted care today? How? (Homelessness, low income, unemployed, alcoholism, drug addiction, transportation, low edu. Level, literacy, decrease access to med. care, longterm, rehab)? @ -No Was there de-escalation of care discussed even if they declined (Discuss DNR or withdrawal of care, Hospice)? DNR status @ -No What co-morbidities impacted this encounter? (DM, HTN, Smoking, COPD, CAD, Cancer, CVA, ARF, Chemo, Hep., AIDS, mental health diagnosis, sleep apnea, morbid obesity)? @ -None Was patient admitted / discharged? Hospital course, mention meds given and rou te, prescriptions, significant lab abnormalities, going to OR and other pertinent info. @ -Upon arrival patient is placed in room 29. Thorough history and physical exam was performed. Patient is swabbed and is positive for Covid at this time. She was given a dose of prednisone, IM Toradol and a muscle relaxer. She is reevaluated and reports that she does have some response to the medications. I did discuss the treatment plan. Patient will be discharged home on a muscle relaxer and prednisone. I also will provide the patient with a prescription for paxlovid. She is to follow-up with her doctor and return for any new or worsening symptoms Undiagnosed new problem with uncertain prognosis? @ -No Drug Therapy requiring intensive monitoring for toxicity (Heparin, Nitro, Insulin, Cardizem)? @ -No Were any procedures done? @ -No Diagnosis/symptom? @ -Acute Covid upper respiratory infection, acute right-sided sciatica Acute, or Chronic, or Acute on Chronic? @ -Acute Uncomplicated (without systemic symptoms) or Complicated (systemic symptoms)? @ -Complicated Side effects of treatment? @ -No Exacerbation, Progression, or Severe Exacerbation? @ -No Poses a threat to life or bodily function? How? (Chest pain, [place], [place], pneumonia, PE, COPD, DKA, ARF, appy, cholecystitis, CVA, Diverticulitis, Homicidal, Suicidal, threat to staff... and all critical care pts) @ -No - Lab Data Lab Results 06/29/23 Range/Units 21:58 Coronavirus (PCR) Detected A (Not Detectd) Disposition Clinical Impression: Lumbar radicular syndrome, COVID-19, URI (upper respiratory infection), Back pain Disposition: HOME SELF-CARE Condition: Stable Instructions (If sedation given, give patient instructions): Lumbar Radiculopathy (ED), COVID-19 (Coronavirus Disease 2019) (ED) Additional Instructions: Do not take any NSAIDsAleve, Advil, Motrin while taking the prednisone. If the lidocaine patches are not covered by insurance, get the [id number] alternative. This would be the Aspercreme patches. Follow-up with your primary care doctor. May consider getting another MRI of your low spine. Return for any new or worsening symptoms Prescriptions: predniSONE [Deltasone] 20 mg PO BID #10 tab Lidocaine 5% Patch [Lidoderm] 1 patch TOPICAL DAILY #25 patch Nirmatrelvir/Ritonavir [Paxlovid 2X150 mg-100 mg (Eua)] 1 each PO BID #1 pack methocarbamoL [Robaxin-750] 750 mg PO QID PRN #25 tab PRN Reason: Muscle Spasm Is patient prescribed a controlled substance at d/c from ED?: No Referrals: Jaspreet Ellis DO [Primary Care Provider] - 1-2 days Time of Disposition: 23:35
[2023-06-29 23:58] VITALS: BP 113/75; PULSE 79; RESP 20
== END 2023-06-29 23:51 | disposition home or self-care (01) ==
LOC: EC 21:00
DX: U07.1 COVID-19 (principal); M54.16 Radiculopathy, lumbar region; M54.41 Lumbago with sciatica, right side; J06.9 Acute upper respiratory infection, unspecified; Z91.09 Other allergy status, other than to drugs and biological substances; Z90.49 Acquired absence of other specified parts of digestive tract; Z87.891 Personal history of nicotine dependence
CPT/HCPCS: 99283; 96372; 87635; J1885; J7512

== ENCOUNTER → 2024-01-29 | Outpatient (CLI) | payer MEDICARE ==
--- NOTE | 2024-01-30 16:15 | CT ---
EXAMINATION TYPE: CT abdomen pelvis wo con DATE OF EXAM: 01/29/2024 COMPARISON: 03/30/2018 HISTORY: kidney stone CT DLP: 426.2 mGycm Automated exposure control for dose reduction was used. TECHNIQUE: Helical acquisition of images was performed from the lung bases through the pelvis. FINDINGS: There is a small focal infiltrate in the right lung base posteriorly which could represent a pneumoni c infiltrate and clinical correlation is recommended. There is surgical absence of the gallbladder. There is no organomegaly of the solid visceral organs of the upper abdomen. There is moderate to marked left hydronephrosis and hydroureter secondary to a 6 mm an 8 mm distal le ft ureteral obstructing calculi. There are no right renal calcifications or hydronephrosis. Caliber of the abdominal aorta is normal retroperitoneal adenopathy. The bowel loops are normal in caliber and no dilatation or obstruction. No inflammatory changes are i dentified in the bowel wall or mesentery. There is no free intraperitoneal air-fluid. No pelvic mass or adenopathy. There are anastomotic sutures in the rectosigmoid junction. There is metallic fusion in the lower lumbar spine. IMPRESSION: 1. Small right lower lobe infiltrate suspicious for pneumonia and clinical correlation is recommended . 2. Development of moderate to marked left hydronephrosis and hydroureter secondary to 2 obstructing d istal left ureteral calculi the largest of which is 8 mm
== END | disposition home or self-care (01) ==
LOC: RADCTMAIN 10:23
PROVIDERS: ATTEND Urology
DX: N13.2 Hydronephrosis with renal and ureteral calculous obstruction (principal); R91.8 Other nonspecific abnormal finding of lung field
CPT/HCPCS: 74176

== ENCOUNTER → 2024-02-05 | Outpatient (CLI) | payer MEDICARE ==
[2024-02-05 14:39] LABS: Basophils # (A) 0.04 X 10*3/uL (0.00-0.10); Basophils % (A) 0.9 %; Eosinophils # (A) 0.13 X 10*3/uL (0.04-0.35); Eosinophils % (A) 2.8 %; HCT 36.7 % (37.2-46.3); HGB 11.5 g/dL (12.0-15.0); Lymphocytes # (A) 1.71 X 10*3/uL (0.90-5.00); Lymphocytes % (A) 36.5 %; MCHC 31.3 g/dL (32.0-37.0); MCV 98.9 FL (80.0-97.0); Mean Platelet Volume 12.6 FL (9.5-12.2); Monocytes # (A) 0.41 X 10*3/uL (0.20-1.00); Monocytes % (A) 8.8 %; NRBC Per 100 WBC 0 X 10*3/uL (0.00-0.01); Neutrophils # (A) 2.37 X 10*3/uL (1.80-7.70); Neutrophils % (A) 50.6 %; Platelet Count 213 X 10*3/uL (140-440); RBC 3.71 X 10*6/uL (4.10-5.20); RDW 14.6 % (11.5-14.5); WBC 4.68 X 10*3/uL (4.50-10.00)
[2024-02-05 15:04] LABS: BUN/Creat Ratio 29.71 Ratio (12.00-20.00); Blood Urea Nitrogen 20.8 mg/dL (9.0-27.0); Calcium 9.9 mg/dL (8.7-10.3); Carbon Dioxide 23.1 mmol/L (21.6-31.8); Chloride 105 mmol/L (96-109); Glucose 108 mg/dL (70-110); Potassium 4.6 mmol/L (3.5-5.5); Sodium 142 mmol/L (135-145)
== END | disposition home or self-care (01) ==
LOC: LABWHC1 10:16
PROVIDERS: ATTEND Urology
DX: Z01.812 Encounter for preprocedural laboratory examination (principal); N20.1 Calculus of ureter
CPT/HCPCS: 36415; 80048; 85025

== ENCOUNTER 2024-02-06 11:13 | Day surgery (SDC) | payer MEDICARE ==
--- NOTE | 2024-02-06 06:32 | P.GSHP ---
History of Present Illness H&P Date: 02/06/24 Chief Complaint: Left hydronephrosis Patient is a 73-year-old white female with a history of urolithiasis. She has a history of lumbar disc disease for which she recently underwent imaging. She was found to have left hydronephrosis. Further evaluation revealed this to be d ue to two left distal ureteral calculi, measuring 6 mm and 8 mm. She is asymptomatic. - Constitutional Constitutional: Denies chills, Denies fever - Gastrointestinal Gastrointestinal: Denies nausea, Denies vomiting - Genitourinary (Female) Genitourinary: Reports kidney stones, Denies dysuria, Denies flank pain, Denies hematuria Past Medical History Past Medical History: Cancer, GERD/Reflux, Osteoarthritis (OA), Skin Disorder Additional Past Medical History / Comment(s): Hx of bowel Obstruction x5-most recent in March 2018, diverticular disease, Hx of psoriasis,uti, kidney stone(sx) basal cell, restless leg, hand shaking, fatty liver syndrome History of Any Multi-Drug Resistant Organisms: None Reported Past Surgical History: Back Surgery, Bowel Resection, Section, Cholecystectomy, Joint Replacement, Orthopedic Surgery Additional Past Surgical History / Comment(s): 3 c-sections, rt knee replacement, kidney stone removed, Past Anesthesia/Blood Transfusion Reactions: Postoperative Nausea & Vomiting (PONV) Additional Past Anesthesia/Blood Transfusion Reaction / Comment(s): severe ponv Smoking Status: Former smoker - Past Family History Father History Unknown: Yes Sister(s) Family Medical History: Cancer Additional Family Medical History / Comment(s): i sister at age 66 from colorectal cancer and 2ns sister dx w/ stage 3 lung cancer-smoker Mother Family Medical History: Cancer Additional Family Medical History / Comment(s): breast cancer Medications and Allergies Home Medications Medication Instructions Recorded Confirmed Type rOPINIRole HCL 0.25 mg PO HS 06/11/23 02/05/24 History methocarbamoL [Robaxin-750] 750 mg PO QID PRN #25 tab 06/29/23 02/05/24 Rx Acetaminophen [Tylenol] 1 dose PO DIRECTED PRN 02/05/24 02/05/24 History Celecoxib 100 mg PO BID 02/05/24 02/05/24 History Pregabalin 50 mg PO BID 02/05/24 02/05/24 History Allergies Allergy/AdvReac Type Severity Reaction Status Date / Time nickel Allergy Rash/Hives Verified 02/05/24 11:43 Surgical - Exam - General well developed, well nourished, no distress - Neck no masses, trachea midline - Respiratory normal respiratory effort - Abdomen Abdomen: soft, non tender, no guarding, no rigid, no rebound - Psychiatric oriented to time, oriented to person, oriented to place, speech is normal, memory intact Results - Imaging CT scan - abdomen: report reviewed, image reviewed Assessment and Plan (1) Calculus of ureter Status: Acute Code(s): N20.1 - CALCULUS OF URETER SNOMED Code(s): 76367131 Plan: Cystoscopy, left retrograde pyelogram, left ureteroscopy with holmium laser lithotripsy and stone basketing, left ureteral stent insertion. There appears to be thinning of the left renal parenchyma, and the patient has been advised that the calculi may be impacted. She was made aware of potential risks, which include anesthesia, bleeding, infection, inability to remove the calculi, and ureteral injury. If there is evidence of ureteral damage resulting from the calculi being impacted for a prolonged period, the stent will remain in place longer than typical postoperatively. I also explained to her that in this setting, it may be preferable to simply place a ureteral stent and subsequently perform ureteroscopy in several weeks.
[~2024-02-06 11:13] MED LIST changes: +HYDROmorphone 0.5 MG/0.5 ML SYRINGE IVP PRN; -LACTATED RINGERS 1,000 ML IV SCH; +MIDAZOLAM 2 MG/2 ML VIAL IV PRN; +fentaNYL (PF) 50 MCG/ML 2 ML AMP IVP PRN
--- NOTE | 2024-02-06 11:36 | XR ---
EXAMINATION TYPE: XR KUB DATE OF EXAM: 02/06/2024 COMPARISON: NONE HISTORY: Left ureteral calculus TECHNIQUE: One view abdominal series FINDINGS: The osseous structures are intact. The bowel gas pattern is nonspecific. Surgical clips in the gallb ladder fossa. Degenerative change of the spine with postsurgical changes lumbosacral junction. Arthro indio of the hips. Renal outlines are secured by bowel content. No definite suspicious calcifications. Calcification in the pelvis adjacent to the medial margin of the left SI joint likely corresponds to the ureteral calc ulus as seen by recent CT scan. IMPRESSION: 1. Calcification measuring approximately 6 mm adjacent to the medial margin of the left SI joint greer esponds to the CT abnormality with no significant change in position.
[2024-02-06] MEDS: IV FLUID CONTINUATION 1,000 ML IV ONE ×2 (12:54→16:08)
[2024-02-06] MEDS: LACTATED RINGERS 1,000 ML IV SCH (12:55)
[2024-02-06] MEDS: ONDANSETRON 4 MG/2 ML VIAL IVP ONE (12:56)
[2024-02-06] MEDS: DEXAMETHASONE SOD PHOSPHATE 4 MG/ML 1 ML VIAL IV ONE (12:56)
[2024-02-06 13:10] VITALS: RESP 16
[2024-02-06] MEDS ORDERED: PROPOFOL 10 MG/ML 20 ML VIAL IV ONE (13:49)
[2024-02-06] MEDS ORDERED: GLYCOPYRROLATE 0.2 MG/ML 2 ML VIAL ONE (13:49)
[2024-02-06] MEDS ORDERED: SUCCINYLCHOLINE CHLORIDE 200 MG/10 ML VIAL IV ONE (13:49)
[2024-02-06] MEDS ORDERED: MIDAZOLAM 2 MG/2 ML VIAL ONE (13:49)
[2024-02-06] MEDS ORDERED: LIDOCAINE 1% INJ 10MG/ML (20 ML MDV) ONE (13:49)
[2024-02-06] MEDS ORDERED: fentaNYL (PF) 50 MCG/ML 2 ML AMP ONE (13:49)
[2024-02-06] MEDS ORDERED: ROCURONIUM 10 MG/ML (5 ML VIAL) IV ONE (13:49)
[2024-02-06] MEDS ORDERED: NEOSTIGMINE 1 MG/ML 10 ML VIAL ONE (13:49)
[2024-02-06] MEDS: IOPAMIDOL-370 100ML BTL MISCELLANE ONE (14:12)
--- NOTE | 2024-02-06 15:33 | P.OP ---
Date of Procedure: 02/06/24 Preoperative Diagnosis: Left ureteral calculi Postoperative Diagnosis: Left ureteral calculus Procedure(s) Performed: Cystoscopy, left retrograde pyelogram, left ureteroscopy with Holmium laser lithotripsy and stone basketing, left ureteral stent insertion Anesthesia: HARLAN Surgeon: Omid Witt Estimated Blood Loss (ml): 5 IV fluids (ml): 400 Pathology: other (Left ureteral calculus fragments, sent for chemical analysis) Condition: stable Disposition: PACU Indications for Procedure: Patient is a 73-year-old white female with a history of urolithiasis. She has a history of lumbar disc disease for which she recently underwent imaging. She was found to have left hydronephrosis. Further evaluation revealed this to be due to two left distal ureteral calculi, measuring 6 mm and 8 mm. She is asymptomatic. She now comes for ureteroscopic removal of the calculi. Operative Findings: 6 to 8 mm left distal ureteral calculus at the level of the iliac vessels, impacted and adherent to the surrounding ureter. The calculus was fragmented and removed completely. Chronic inflammation of the ureter is noted. Description of Procedure: The patient was taken to the operating room and placed in the dorsolithotomy position, with legs supported in Figueroa stirrups. The external genitalia was prepped and draped sterilely. The 30 lens was used to introduce the 21-Russian Gonzalez cystoscopic sheath through the urethra and into the bladder under direct vision. The bladder was examined in its entirety. Both ureteral orifices were normal anatomic location and configuration. No tumors or foreign bodies were seen. Using a 10 Russian cone-tip catheter, a left retrograde pyelogram was performed. A calculus was seen at the level of the iliac vessels. The ureter proximal to this was mildly dilated. The cystoscope was removed. The Gonzalez semirigid ureteroscope was advanced into the bladder, and the left ureteral orifice was cannulated. The ureteroscope was advanced under direct vision, up to the calculus. The 272 micron Holmium laser probe was passed through the ureteroscope, and lithotripsy was performed. The central portion of the calculus was fragmented. Portions of the peripheral aspect of the calculus were adherent to the ureteral wall. In these instances, the tip of the laser probe was used to pry the calculus fragments away from the ureteral wall, thus avoiding any laser damage to the ureter. Once the stone had been completely fragmented, the ureteroscope was advanced up to the ureteropelvic junction. No additional calculi were seen. A 1.9 Russian 0 tip nitinol basket was used to remove the calculus fragments from the ureter. The ureter was then inspected. There was evidence of chronic inflammation where the calculus had been impacted. There was no evidence of ureteral perforation. A 0.035 inch Glidewire was advanced up to the left renal pelvis, where it coiled. The ureteroscope was removed, and the guidewire was backloaded into the cystoscope, which was passed into the bladder. A 22 cm, 6 Russian double-J ureteral stent was placed over the wire. Proper stent positioning was verified fluoroscopically and endoscopically. The bladder was emptied and the cystoscope removed. The patient tolerated the procedure well and was taken to the recovery room in stable condition. MARCELLE BLOOMINGTONEliel Report: Procedure Acuity: Semi-Urgent Stone Size and Location: 6 to 8 mm, left distal ureter at the level of the iliac vessels. Ureteral Dilation: No Ureteral Access Sheath Used: No Stone Sent for Analysis: Yes All Stones/Fragments Were Removed with a Basket: Yes Complications: No Preoperative Antibiotics Given: Yes Stent Placed: Yes If Stent Placed, Was String Left Attached: No If Stent Placed, When is it to be Removed: 1 month Discharge Medications: Toradol, tamsulosin, tolterodine
[2024-02-06 15:44] VITALS: TEMP 97.2
[2024-02-06 16:32] VITALS: PULSE 74
[2024-02-06 17:18] VITALS: BP 135/76
--- NOTE | 2024-02-06 22:22 | FL ---
EXAMINATION TYPE: FL urography retrograde DATE OF EXAM: 02/06/2024 COMPARISON: NONE HISTORY: Lithotripsy TECHNIQUE: Fluoroscopy. FINDINGS: Fluoroscopic guidance was provided during the procedure. A total of 27 seconds of fluoroscopic time was utilized during the procedure and 2 spot images were a cquired. Cumulative Air Kerma: 4.6 mGy IMPRESSION: As Above.
== END 2024-02-06 16:53 | disposition home or self-care (01) ==
LOC: OR 11:13
PROVIDERS: ATTEND Urology
DX: N20.1 Calculus of ureter (principal); K21.9 Gastro-esophageal reflux disease without esophagitis; Z80.0 Family history of malignant neoplasm of digestive organs; Z87.891 Personal history of nicotine dependence; Z90.49 Acquired absence of other specified parts of digestive tract; Z79.899 Other long term (current) drug therapy
CPT/HCPCS: 82365; 74420; 74018; 52356; C1758; C1769; C2625; J2250; J0330; J1100; J2710; J0690; J2405; J2001; J3010; J2704; Q9967

== ENCOUNTER → 2024-04-20 | Outpatient (CLI) | payer MEDICARE ==
--- NOTE | 2024-05-12 16:32 | US ---
Site ID [facility] Patient aFdia Burgos ID [id number] Age/Gender: 74Y, F Order # N/A Procedure US RENALS AND BLADDER Date 04/20/2024 10:46:00 AM EXAMINATION TYPE: US renals and bladder DATE OF EXAM: 05/03/2024 COMPARISON: CT abdomen pelvis 01/29/2024 CLINICAL INDICATION: Female, 74 year old with history of left renal stone and hydroureter February 2024, had lithotripsy and no pain since, follow-up. EXAM MEASUREMENTS: Right Kidney: 10.4 x 5.3 x 4.9 cm Left Kidney: 9.2 x 4.8 x 4.6 cm Right Kidney: wnl Left Kidney: Mild to moderate left hydronephrosis. Bladder: wnl Bilateral Jets seen: Right ureteral jet only visualized. The right hydronephrosis. Mild to moderate left hydronephrosis. No shadowing calculi seen within both kidneys. No masses are identified. The urinary bladder is anechoic. Right ureteral jet only visual ized. IMPRESSION: [id number] left hydronephrosis redemonstrated.
== END | disposition home or self-care (01) ==
LOC: RADUSWWP 12:00
PROVIDERS: ATTEND Urology
DX: N13.2 Hydronephrosis with renal and ureteral calculous obstruction
CPT/HCPCS: 76770

== ENCOUNTER → 2024-06-17 | Outpatient (CLI) | payer MEDICARE ==
--- NOTE | 2024-06-17 11:23 | US ---
EXAMINATION TYPE: US kidneys/renal and bladder DATE OF EXAM: 06/17/2024 COMPARISON: US 04/20/2024 CLINICAL INDICATION: Female, 74 years old with history of N132 HYDRO W/ CALCULUS; [place] with calculus . TECHNIQUE: Grayscale and color Doppler imaging of the bilateral kidneys and urinary bladder: FINDINGS: EXAM MEASUREMENTS: Right Kidney: 10.0 x 5.6 x 5.9 cm Left Kidney: 8.7 x 4.4 x 4.3 cm Right Kidney: No hydronephrosis or masses seen Left Kidney: *Hydronephrosis seen. Measures slightly improved. Bladder: Appears anechoic. Bilateral Jets seen: Right jet seen. No nephrolithiasis. Renal cortex and echogenicity within normal limits. There is bilateral cortical l obulation. IMPRESSION: 1. Mild left hydronephrosis slightly improved from prior exam. [facility], , 06/17/2024 11:20 AM
== END | disposition home or self-care (01) ==
LOC: RADUSWWP 10:26
PROVIDERS: ATTEND Urology
DX: N13.2 Hydronephrosis with renal and ureteral calculous obstruction (principal)
CPT/HCPCS: 76770

== ENCOUNTER → 2024-06-17 | Outpatient (CLI) | payer MEDICARE ==
--- NOTE | 2024-06-18 20:09 | MM ---
Reason for Exam: Screening (asymptomatic). Last screening mammogram was performed 12 month(s) ago. Patient History: Menarche at age 11. First Full-Term at age 23. Postmenopausal. Patient used Estrogen for 1 year. Patient used Progesterone for 1 year. Core Biopsy on the Left side. Excisional Biopsy on the Left side. 04/30/2002, Benign Excisional Biopsy on the right side. Maternal cousin had breast cancer, age 40. Maternal aunt had breast cancer, age 60. Maternal cousin had breast cancer at or over age 50. Mother had breast cancer, age 70. Risk Values: Destiny 5 year model risk: 5.2%. NCI Lifetime model risk: 10.3%. Prior Study Comparison: 06/09/2021 Bilateral Screening Mammogram, [facility]. 06/12/2022 Bilateral MG 3D screening mammo w/cad, [facility]. 06/13/2023 Bilateral MG 3D screening mammo w/cad, [facility]. Tissue Density: The breasts are heterogeneously dense, which may obscure small masses. Findings: Analyzed By CAD. Postexcisional change on both sides. A few scattered benign oil cyst calcifications are redemonstrated. Unchanged bilateral areas of asymmetric density and chronic nodularity on the left. There is no suspicious group of microcalcifications or new suspicious mass in either breast. Overall Assessment: Benign, BI-RAD 2 Management: Screening Mammogram of both breasts in 1 year. See note below in regards to the patient's increased 5 year Destiny score. Patient should continue monthly self-breast exams. A clinical breast exam by your physician is recommended on an annual basis. This exam should not preclude additional follow-up of suspicious palpable abnormalities. Note on Destiny scores and lifetime risk: 1. A Destiny score greater than 3% is considered moderate risk. If this is the case, consider specialist referral to assess eligibility for a risk reducing agent. 2. If overall lifetime risk for the development of breast cancer is 20% or higher, the patient may qualify for future screening with alternating mammogram and breast MRI. [facility], , 06/18/2024 8:06 PM. Electronically signed and approved by: Micky Gauthier M.D. Radiologist
== END | disposition home or self-care (01) ==
LOC: RADMAMWWP 10:27
PROVIDERS: ATTEND Family Medicine
CPT/HCPCS: 77063; 77067

== ENCOUNTER → 2025-01-08 | Outpatient (CLI) | payer MEDICARE ==
--- NOTE | 2025-01-08 11:09 | US ---
EXAMINATION TYPE: US kidneys/renal and bladder DATE OF EXAM: 01/08/2025 COMPARISON: NONE CLINICAL INDICATION: Female, 74 years old with history of N20.0 CALCULUS OF KIDNEY; Patient denies an y signs or symptoms, Hs left sided hydro TECHNIQUE: Grayscale imaging of the bilateral kidneys and urinary bladder: FINDINGS: EXAM MEASUREMENTS: Right Kidney: 10.3 x 5.4 x 4.7 cm Left Kidney: 9.6 x 5.1 x 4.8 cm Post Void Residual Volume: NA mL Right Kidney: wnl, no evidence for hydronephrosis, mass or renal calculus. Left Kidney: wnl, no evidence for hydronephrosis, mass or renal calculus. Bladder: wnl Bilateral Jets seen: Yes Normal Post Void Residual: NA There is no evidence for hydronephrosis at this point in time. No nephrolithiasis is seen. No elizabeth s are identified. The urinary bladder is anechoic. IMPRESSION: No discrete abnormality present. [facility], , 01/08/2025 11:06 AM
== END | disposition home or self-care (01) ==
LOC: RADUSWWP 10:38
PROVIDERS: ATTEND Urology
DX: N13.2 Hydronephrosis with renal and ureteral calculous obstruction (principal)
CPT/HCPCS: 76770